=== PATIENT | female | born 1940 | race Caucasian/White ===

== ENCOUNTER → 2017-07-12 | Outpatient (CLI) | payer MEDICARE, OTHER, SELFPAY | PROVIDERS: Visit Provider Nurse Practitioner Family | DX: I10 Essential (primary) hypertension (principal); E03.9 Hypothyroidism, unspecified | CPT/HCPCS: 80053; 80061; 84439; 84443; 85025 ==

== ENCOUNTER → 2017-07-19 | Outpatient (CLI) | payer MEDICARE, OTHER, SELFPAY | PROVIDERS: Visit Provider Physician Assistant | DX: I10 Essential (primary) hypertension (principal) | CPT/HCPCS: 80053; 80061; 85025 ==

== ENCOUNTER → 2018-01-10 09:21 | Outpatient (CLI) | payer MEDICARE, OTHER, SELFPAY | PROVIDERS: Visit Provider Nurse Practitioner Family | DX: Z09 Encounter for follow-up examination after completed treatment for conditions other than malignant neoplasm (principal) ==

== ENCOUNTER → 2018-02-22 10:41 | Outpatient (CLI) | payer MEDICARE, OTHER, SELFPAY ==
--- NOTE | 2018-02-22 10:48 | CA_ITS ---
PROCEDURE: 2-D M-mode and color Doppler study INDICATIONS FOR THE TEST: Chest pain COPD Heart MurmurX Tobacco Smoking Palpitations Fatigue Syncope Edema HypertensionXDiabetes Mellitus Rheumatic Fever SOB SAEZ Obesity Hyperlipidemia Family History HD Additional History 1ST DEGREE BLOCK PATIENT INFORMATION HEIGHT: 66 WEIGHT:157 GENDER: Female B/P:133/61 2-D/M-MODE INTERPRETATION: 2-D MEASUREMENTS OBSERVED VALUES IN CMS Right Ventricular Dimension (RVDd) 1.5 Interventricular Septum (Thickness)(IVsd) .8 Left Ventricular Internal Dimensions(LVIDd) 5.6 Left Ventricular Posterior Wall (Thickness)(LVPWd) 1.0 Aortic Root 3.3 Aortic Cusp Separation 1.8 Left Atrial Dimensions (LAD) 3.3 2D 1. Left atrium is mildly enlarged, left ventricle is normal size, visually estimated ejection fraction 55% with no obvious regional wall motion abnormality. 2. The right atrium and right ventricle are normal size and contractility. 3. The aortic valve is minimally thickened and fibrosed. 4. The mitral and tricuspid valve leaflets are minimally thickened. 5. The pulmonic valve is poorly visualized. 6. No significant pericardial effusion noted. DOPPLER INTERROGATION: Doppler interrogation of the aortic, mitral and tricuspid valvular presence of mild mitral and tricuspid regurgitation, tricuspid and jet velocity is insufficient for calculation of the right ventricular systolic pressure, mild aortic insufficiency also seen. Diastolic parameters are inconclusive. CONCLUSION: 1. Mildly enlarged left atrium, normal left ventricular size, visually estimated ejection fraction 55% with no obvious regional wall motion abnormality, diastolic parameters are inconclusive. 2. Mild aortic, mild mitral and tricuspid regurgitation 3. No significant pericardial effusion noted.
== END ==
PROVIDERS: PCP Emergency Medicine; Visit Provider Internal Medicine
DX: I44.39 Other atrioventricular block (principal)
CPT/HCPCS: 93306

== ENCOUNTER → 2018-03-19 10:37 | Outpatient (CLI) | payer MEDICARE, OTHER, SELFPAY ==
--- NOTE | 2018-03-19 10:39 | XR_ITS ---
XR cervical spine w flex/ext CLINICAL INDICATION: Neck pain with kyphosis ITS.REASON: neck pain ORDERING PHYSICIAN: YANDY Razo PATIENT AGE: 78 years Comparison: None FINDINGS: There is kyphosis of the upper thoracic spine. There is mild degenerative disc disease at C5-C6 and C6-C7. There is normal alignment. No fracture or dislocation is evident. The neural foramina are widely patent. Flexion and extension views show no abnormal subluxation in flexion or extension. There is some intimal fixed subluxation of C7 on T1 anteriorly of approximately 1-2 mm likely degenerative in nature. No lytic or blastic change. No evidence of cervical rib. IMPRESSION: Mild degenerative disc disease of the cervical spine with thoracic kyphosis with no abnormal subluxation in flexion or extension
== END ==
PROVIDERS: PCP Nurse Practitioner Family; Visit Provider Physician Assistant
DX: M54.2 Cervicalgia (principal)
CPT/HCPCS: 72052

== ENCOUNTER → 2018-04-05 09:31 | Outpatient (CLI) | payer MEDICARE, OTHER, SELFPAY ==
[2018-04-05 16:11] LABS: Basophils % 0.5 % (0.1-2.0); Eosinophils # 0.2 K/mm3 (0.0-0.4); Eosinophils % 1.6 % (0.1-12.0); Hematocrit 39.5 % (37.0-47.0); Hemoglobin 13.2 g/dL (12.2-16.2); Lymphocytes % 21.5 K/mm3 (10-50); Mean Corpuscular HGB Conc 33.3 g/dL (31.8-35.4); Mean Corpuscular Hemoglobin 29.3 pg (27.0-31.2); Mean Corpuscular Volume 87.8 fl (81-99); Mean Platelet Volume 8.7 fl (7.4-10.4); Monocytes # 0.6 K/mm3 (0.1-1.0); Monocytes % 6.2 % (1.7-9.3); Neutrophils # 6.4 K/mm3 (1.8-7.8); Neutrophils % 70.2 % (37.0-80.0); Platelet Count 297 K/mm3 (142-424); Red Cell Distribution Width 13.3 % (11.5-17.5); White Blood Count 9.1 K/mm3 (4.8-10.8)
[2018-04-05 16:58] LABS: Alanine Aminotransferase 26 U/L (12-78); Albumin Level 3.6 gm/dL (3.4-5.0); Alkaline Phosphatase 111 U/L (46-116); Anion Gap 13.4 mEq/L (5-15); Aspartate Amino Transferase 18 U/L (15-37); Bilirubin,Total 0.6 mg/dL (0.2-1.0); Blood Urea Nitrogen 15 mg/dL (7-18); Calcium 9.7 mg/dL (8.5-10.1); Carbon Dioxide 29 mmol/L (21.0-32.0); Chloride 98 mmol/L (98-107); Chol/HDL Ratio 2.8 (1-3.5); Cholesterol 179 mg/dL (140-200); Creatinine,Serum 0.68 mg/dL (0.55-1.02); Estimated Glomerular Filt Rate 83 ml/min (>60); GFR (African American) 101 ML/MIN (>60); Globulin 3.7 gm/dl (1.3-3.2); Glucose 93 mg/dL (74-106); HDL Cholesterol 63 mg/dL (29-89); LDL Cholesterol 92 mg/dL (0-130); Potassium 3.4 mmoL/L (3.5-5.1); Sodium 137 mmol/L (136-145); T4 (Thyroxine) 10.8 ug/dl (4.7-13.3); Thyroid Stimulating Hormone 3.89 uIU/ml (0.358-3.740); Total Protein,Serum 7.3 gm/dL (6.4-8.2); Triglycerides 122 mg/dL (30-200); VLDL Cholesterol 24 mg/dL (0-40)
== END ==
PROVIDERS: Visit Provider Nurse Practitioner Family
DX: R53.83 Other fatigue (principal); E03.9 Hypothyroidism, unspecified; I49.9 Cardiac arrhythmia, unspecified
CPT/HCPCS: 80053; 80061; 84436; 84443; 85025

== ENCOUNTER → 2018-07-11 14:01 | Outpatient (CLI) | payer MEDICARE, OTHER, SELFPAY | PROVIDERS: Visit Provider Nurse Practitioner Family | DX: R35.0 Frequency of micturition (principal) | CPT/HCPCS: 87086 ==

== ENCOUNTER → 2020-03-24 08:17 | Outpatient (CLI) | payer MEDICARE, OTHER, SELFPAY ==
--- NOTE | 2020-03-24 08:17 | CA_ITS ---
APPROVED REPORT EXAM: Comprehensive 2D, Doppler, and color-flow Echocardiogram Early Childhood Special Educator: Mara Morgan RT(R) Ht: 5 ft 1 in Wt: 149lbs BSA: 1.67 BP: 129/57 mmHg Indications: murmur, SOA, Mr, HTN, SAEZ, abn EKG 2D Dimensions LVOT 1.86 cm (M/F) 1.5-2.5 M-Mode Dimensions RVDd 1.93 cm (0.9-2.6) LVDd 4.65 cm (3.5-5.7) LVDs 2.83 cm (3.5-5.7) IVSd 1.00 cm (0.6-1.1) PWd 0.89 cm (0.6-1.1) EF (Teich) 69.60% FS 39.10% EDV (Teich) 99.80 mL ESV (Teich) 30.30 mL LV Diastology E/A Ratio 0.94 Mitral Valve MV A Velocity 98.00 (40-130 cm/s) Left Ventricle Left atrium is mildly enlarged, left ventricle is normal size, mild concentric left ventricular hypertrophy, visually estimated ejection fraction 55% with no regional wall motion abnormality, grade 1 diastolic dysfunction seen without tissue Doppler evidence of raise left atrial pressure. Right Ventricle Right atrium and right ventricle are normal size and contractility. Aortic Valve Aortic valve is minimally thickened and fibrosed, there is no aortic stenosis, there is mild aortic insufficiency. Mitral Valve Mitral valve leaflets are minimally thickened, there is no mitral stenosis, there is mild mitral regurgitation. Tricuspid Valve Tricuspid valve is grossly normal, there is mild tricuspid regurgitation, tricuspid regurgitation jet velocity is inadequate for calculation of the right ventricular systolic pressure. Pulmonic Valve Pulmonic valve is poorly visualized. Great Vessels Aortic root is normal size. Pericardium No significant pericardial effusion noted. Conclusion 1. Mildly enlarged left atrium, normal left ventricular size, mild concentric left ventricular hypertrophy, visually estimated ejection fraction 55% with no regional wall motion abnormality, grade 1 diastolic dysfunction seen without tissue Doppler evidence of raise left atrial pressure. 2. Mild aortic, mild mitral and tricuspid regurgitation. 3. No significant pericardial effusion noted. Electronically signed by : Wilner Clark, 03/25/2020 10:47:19
== END ==
PROVIDERS: PCP Nurse Practitioner Family; Visit Provider Nurse Practitioner Family
DX: E03.8 Other specified hypothyroidism (principal); F41.9 Anxiety disorder, unspecified; I34.0 Nonrheumatic mitral (valve) insufficiency; I44.0 Atrioventricular block, first degree; R01.1 Cardiac murmur, unspecified; R06.09 Other forms of dyspnea; R94.31 Abnormal electrocardiogram [ECG] [EKG]
CPT/HCPCS: 93306

== ENCOUNTER 2021-05-23 10:21 | Emergency (ER) | payer MEDICARE, OTHER, SELFPAY ==
[2021-05-23 10:45] VITALS: BMI 28.3
--- NOTE | 2021-05-23 10:47 | XR_ITS ---
PROCEDURE: XR HAND RT 2V CLINICAL INDICATION: FALL COMPARISON: CR XR HAND RT MIN 3V from 10/15/2019 FINDINGS: No fracture or dislocation. No lytic or blastic change. There is normal mineralization. Osteoarthritic changes are present involving the DIP of digits 2 through and at the 1st interphalangeal joint as well as the PIP joints of digits 2 through 5 and the 1st metacarpophalangeal joint Other findings:There is some periosteal thickening at the midshaft of the 1st metacarpal suggesting a healing fracture. Previously described cortical lucencies of the 5th metacarpal are less apparent IMPRESSION: Osteoarthritic change, no acute finding. Possible old 1st metacarpal fracture not significantly changed Dictated by: Berhane Medina MD 05/23/2021 13:25 Berhane Medina MD in [place] 05/23/2021 13:25
--- NOTE | 2021-05-23 10:47 | XR_ITS ---
PROCEDURE: XR ELBOW RT 2V CLINICAL INDICATION: FALL COMPARISON: No exams were available for comparison FINDINGS: No fracture or dislocation. No lytic or blastic change. There is normal mineralization. The joint spaces are well-preserved. No significant degenerative/arthritic changes. No erosive changes evident. Other findings:None. IMPRESSION: No acute findings. Dictated by: Berhane Medina MD 05/23/2021 13:26 Berhane Medina MD in [place] 05/23/2021 13:26
--- NOTE | 2021-05-23 10:47 | XR_ITS ---
PROCEDURE: XR WRIST RT 2V CLINICAL INDICATION: FALL COMPARISON: CR XR HAND RT 2V from 05/23/2021 FINDINGS: No fracture or dislocation. No lytic or blastic change. There is normal mineralization. Osteoarthritic change the scapho trapezium joint. Other findings:None. IMPRESSION: No acute findings. Dictated by: Berhane Medina MD 05/23/2021 13:25 Berhane Medina MD in [place] 05/23/2021 13:25
--- NOTE | 2021-05-23 10:47 | XR_ITS ---
PROCEDURE: XR FOREARM RT 2V CLINICAL INDICATION: FALL COMPARISON: No exams were available for comparison FINDINGS: No fracture or dislocation. No lytic or blastic change. There is normal mineralization. The joint spaces are well-preserved. No significant degenerative/arthritic changes. No erosive changes evident. Other findings:None. IMPRESSION: No acute findings. Dictated by: Berhane Medina MD 05/23/2021 13:20 Berhane Medina MD in [place] 05/23/2021 13:20
--- NOTE | 2021-05-23 10:47 | XR_ITS ---
PROCEDURE: XR RIBS RT MIN 3V W CXR1V CLINICAL INDICATION: FALL Right-sided rib pain COMPARISON: CR XR CHEST AP from 10/15/2019 FINDINGS: There is an old fracture involving the right 5th rib. There is some minimal contour deformity involving the right 7th rib laterally which could be due to either an old or a nondisplaced acute fracture. No evidence of pneumothorax. No displaced rib fractures identified. Frontal view of the chest shows no acute finding. IMPRESSION: Old right 5th rib fracture with nondisplaced right 7th rib fracture which could be old or a nondisplaced acute fracture. Dictated by: Berhane Medina MD 05/23/2021 13:19 Berhane Medina MD in [place] 05/23/2021 13:19
[2021-05-23 10:50] VITALS: BP 164/98; PULSE 75; RESP 20; TEMP 36.6; O2SAT 96; BMI 25.0
--- NOTE | 2021-05-23 13:23 | HMH.EDUTC ---
[facility] [place] Clinical Impression: Fall Qualifiers: Encounter type: initial encounter Qualified Code(s): W19.XXXA - Unspecified fall, initial encounter Rib fracture Qualifiers: Encounter type: initial encounter Rib fracture type: single rib Fracture type: closed Laterality: right Qualified Code(s): S22.31XA - Fracture of one rib, right side, initial encounter for closed fracture Contusion of right wrist Qualifiers: Encounter type: initial encounter Qualified Code(s): S60.211A - Contusion of right wrist, initial encounter Contusion of right elbow Qualifiers: Encounter type: initial encounter Qualified Code(s): S50.01XA - Contusion of right elbow, initial encounter Abrasion of right arm Qualifiers: Encounter type: initial encounter Qualified Code(s): S40.811A - Abrasion of right upper arm, initial encounter Disposition: Home, Self-Care Condition on Discharge: Good Instructions: How to Use an Incentive Spirometer, DI for Rib Fracture, DI for Contusion Additional Instructions: Rest the extremity, apply ice for 15 minutes as tolerated three or four times per day, Wear the monika wrap for compression, Elevate the extremity as tolerated while you are resting. Take tylenol for pain. Follow up with Dr. Jackson (orthopedics) regarding your right wrist and arm pain. Sometimes there can be fractures that don't show up well on the first set of x-rays. So, you should follow up if you continue to have symptoms. I put in a referral but you need to call his office and schedule an appointment. Use the incentive spirometer 10 times every 2 hours while you are awake for the next 2 weeks or so. Follow up with your regular doctor. GO TO THE ER FOR ANY WORSENING SYMPTOMS Apply the mupirocin (bactroban) ointment to the abrasion on your arms. Prescriptions: Mupirocin [Bactroban 2% Ointment 22gm tube] 1 applicatio TP TID 7 Days #1 gm Transmission Status: Received by [facility] Referrals: Humberto Silva APRN [Primary Care Provider] - Artur Jackson MD [Staff Physician] - Time of Disposition: 13:28 Medical Decision Making - Medical Records Medical records reviewed: No: I reviewed the patient's medical records. - James Inquiry Pt receiving controlled substance: No Vital Signs: 05/23/21 10:50 05/23/21 13:31 Temperature 97.9 F 97.9 F Temperature Source Oral Pulse Rate 75 Pulse Rate [Left Brachial] 75 Respiratory Rate 20 20 Blood Pressure 164/98 H Blood Pressure [Left Arm] 164/98 H Blood Pressure Mean [Left Arm] 120 Blood Pressure Source [Left Arm] Automatic Cuff Blood Pressure Position [Left Arm] Sitting 02 Sat by Pulse Oximetry 96 Oxygen Delivery Method Room Air - Radiology Data #1 Image(s): Chest Image Reviewed: Yes I reviewed the patient's radiology image, Yes I have reviewed radiologist's interpretation Preliminary Findings: Abnormal PROCEDURE: XR RIBS RT MIN 3V W CXR1V CLINICAL INDICATION: FALL Right-sided rib pain COMPARISON: CR XR CHEST AP from 10/15/2019 FINDINGS: There is an old fracture involving the right 5th rib. There is some minimal contour deformity involving the right 7th rib laterally which could be due to either an old or a nondisplaced acute fracture. No evidence of pneumothorax. No displaced rib fractures identified. Frontal view of the chest shows no acute finding. IMPRESSION: Old right 5th rib fracture with nondisplaced right 7th rib fracture which could be old or a nondisplaced acute fracture. Dictated by: Berhane Medina MD 05/23/2021 13:19 Berhane Medina MD in [place] 05/23/2021 13:19 #2 Image(s): Wrist Image Reviewed: Yes I reviewed the patient's radiology image, Yes I have reviewed radiologist's interpretation Preliminary Findings: No Fracture Seen #3 Image(s): Forearm Image Reviewed: Yes I reviewed the patient's radiology image, Yes I have reviewed radiologist's interpretation Preliminary Findin
[2021-05-23 13:31] VITALS: BP 164/98; PULSE 75; RESP 20; TEMP 36.6; O2SAT 96
--- NOTE | 2021-05-23 13:33 | PC.NURSE ---
PATIENT GIVEN INCENTIVE SPIROMETER AND INSTRUCTED ON USE
== END 2021-05-23 13:42 | disposition home or self-care (01) ==
PROVIDERS: Emergency Provider Nurse Practitioner Family; PCP Nurse Practitioner Family
DX: S22.31XA Fracture of one rib, right side, initial encounter for closed fracture (principal); S60.211A Contusion of right wrist, initial encounter; S50.01XA Contusion of right elbow, initial encounter; S40.811A Abrasion of right upper arm, initial encounter; W01.0XXA Fall on same level from slipping, tripping and stumbling without subsequent striking against object, initial encounter; I10 Essential (primary) hypertension; R00.2 Palpitations
CPT/HCPCS: G0463; 71101; 73070; 73090; 73100; 73120; 99202

== ENCOUNTER 2022-06-06 13:51 | Inpatient (IN) | payer OTHER, SELFPAY ==
[2022-06-06] VITALS (11 sets, daily range): BP systolic 118–151; BP diastolic 66–76; PULSE 48–89; RESP 16–50; TEMP 36.8–37.1; O2SAT 92–100; BMI 27.4; BMI 21.8
--- NOTE | 2022-06-06 14:10 | ECG_ITS ---
APPROVED REPORT Exam: Resting ECG HR:77 bpm ECG Measurements Heart Rate 77 AXES NE 241 P 67 QRSd 103 QRS -21 QT 408 T 18 QTc 439 Conclusion SINUS RHYTHM WITH FIRST DEGREE AV BLOCK BORDERLINE LEFT AXIS DEVIATION [QRS AXIS < -20] ST DEVIATION AND MODERATE T-WAVE ABNORMALITY, CONSIDER ANTEROLATERAL ISCHEMIA [-0.1+ mV T-WAVE IN V3-V6] ST DEVIATION AND MODERATE T-WAVE ABNORMALITY, CONSIDER INFERIOR ISCHEMIA [-0.1+ mV T-WAVE IN II/aVF] ABNORMAL ECG UNCONFIRMED REPORT Electronically signed by : Nik Hurst MD 06/06/2022 19:42:09
--- NOTE | 2022-06-06 14:12 | XR_ITS ---
FINAL REPORT CLINICAL HISTORY: fall COMPARISON: May 23, 2021 FINDINGS: The heart size is normal. The mediastinum is within normal limits. There is no acute cardiopulmonary process. There is no pleural effusion. There is no pneumothorax. There appears to be mildly comminuted proximal left humerus fracture. IMPRESSION: No acute cardiopulmonary process. Mildly comminuted proximal left humerus fracture. Reviewed, Interpreted and Dictated by Ashwin Sepulveda MD Transcribed by Albino Lau Authenticated and [facility]
--- NOTE | 2022-06-06 14:12 | XR_ITS ---
FINAL REPORT CLINICAL HISTORY: fall FINDINGS: Left shoulder A single view was obtained. There is an acute mildly impacted fracture of the proximal left humerus. The visualized joint spaces are preserved. There is no acute soft tissue abnormality. IMPRESSION: Mildly impacted fracture of the proximal left humerus. Reviewed, Interpreted and Dictated by Ashwin Sepulveda MD Transcribed by Albino Lau Authenticated and [facility]
--- NOTE | 2022-06-06 14:12 | XR_ITS ---
FINAL REPORT CLINICAL HISTORY: fall FINDINGS: AP PELVIS: A single view of the pelvis was obtained. There is no acute fracture or dislocation. There is moderate hip joint space narrowing. Soft tissues are unremarkable. IMPRESSION: No acute process. Reviewed, Interpreted and Dictated by Ashwin Sepulveda MD Transcribed by Albino Lau Authenticated and [facility]
--- NOTE | 2022-06-06 14:17 | HMH.EDGENADL ---
Discharge Plan Disposition Patient Disposition: Admitted As Inpatient Condition: Fair Prescriptions Prescriptions: No Action losartan-hydrochlorothiazide 50-12.5 mg tablet See Rx Instructions .ROUTE .COMPLEX Qty: 30 3RF Dose Instruction: TAKE ONE TABLET BY MOUTH EVERY DAY Rx Instructions: TAKE ONE TABLET BY MOUTH EVERY DAY levothyroxine 50 mcg tablet See Rx Instructions .ROUTE .COMPLEX Qty: 90 4RF Dose Instruction: TAKE ONE TABLET BY MOUTH EVERY DAY Rx Instructions: TAKE ONE TABLET BY MOUTH EVERY DAY mupirocin 22 GM ointment 1 applicatio TP TID 7 Days Qty: 1 0RF Referrals Follow up/Referrals: Provider,Referral, [Primary Care Provider] - See instructions Clinical Impressions Clinical Impression: Closed fracture of neck of left humerus, Fall, Rhabdomyolysis Discharge ED Provider: Yayo Hernandez General Adult HPI General Chief complaint: Fall Stated complaint: fall Time Seen by Provider: 06/06/22 14:06 Mode of Arrival: EMS Source of Information: Patient Limitations: No Limitations Description of Symptoms (Recalled from ER Triage Doc. by RN): c/o left shoulder pain and right side pain after falling. Per EMS pt was found on the floor, pt is unsure of time of fall yesterday but she remembers that she ate breakfast and lunch yesterday but did not eat supper. Pt has some confusion but family states to EMS that has been something that has been developing over the past few months. History of Present Illness HPI narrative: Patient presents status post fall complaining of left shoulder discomfort. History is limited due to patient being poor historian and oriented only to person place and time. She describes her shoulder pain is mild to moderate and worse with movement. She is uncertain as to why she fell. She denies additional injuries. Related Data Previous Rx's Medication Instructions Recorded mupirocin 2 % topical ointment 1 applicatio TP TID 7 days ##1 05/23/21 losartan 50 mg-hydrochlorothiazide See Rx Instructions .Route 10/25/21 12.5 mg tablet .COMPLEX #30 tabs levothyroxine 50 mcg tablet See Rx Instructions .Route 10/31/21 .COMPLEX #90 tabs Allergies Allergy/AdvReac Type Severity Reaction Status Date / Time No Known Allergies Allergy Verified 02/23/21 11:08 [facility] Medical History (Updated 06/06/22 @ 15:55 by Yayo Hernandez MD) Anxiety Cardiac murmur Dyspnea Hypothyroid Irregular heart rhythm Mitral valve regurgitation Social History Smoking Status: Never smoker alcohol intake: never substance use type: denies use current occupational status: other Travel in the last 8 weeks: None housing: house ROS Obtained: Yes All systems reviewed & no additional complaints except as documented Constitutional Constitutional: Reports system reviewed and no additional complaints, except as documented Eyes Eyes: Reports system reviewed and no additional complaints, except as documented ENT Ears, Nose, Mouth, and Throat: Reports system reviewed and no additional complaints, except as documented Cardiovascular Cardiovascular: Reports system reviewed and no additional complaints, except as documented Respiratory Respiratory: Reports system reviewed and no additional complaints, except as documented Gastrointestinal Gastrointestingal: Reports system reviewed and no additional complaints, except as documented Genitourinary Female Genitourinary: Reports system reviewed and no additional complaints, except as documented Musculoskeletal Musculoskeletal: Reports system reviewed and no additional complaints, except as documented Integumentary/Breasts Skin/Breast: Reports system reviewed and no additional complaints, except as documented Neurologic Neurologic: Reports system reviewed and no additional complaints, except as documented Endocrine Endocrine: Reports system reviewed and no additional complaints, except as documented Hematologic/Lymphatic Hen
[2022-06-06 14:26] LABS: Basophils # 0.1 K/mm3 (0-0.2); Basophils % 0.4 % (0.1-2.0); Eosinophils % 0.1 % (0.1-12.0); Hematocrit 45.6 % (37.0-47.0); Hemoglobin 15.6 g/dL (12.2-16.2); Lymphocytes # 1.5 K/mm3 (0.7-4.5); Lymphocytes % 10.2 % (10-50); MANUAL DIFFERENTIAL MANUAL DIFFERENTIAL (MANUAL DIFF); Mean Corpuscular HGB Conc 34.2 g/dL (31.8-35.4); Mean Corpuscular Hemoglobin 28.5 pg (27.0-31.2); Mean Corpuscular Volume 83.2 fl (81-99); Mean Platelet Volume 9.4 fl (7.4-10.4); Monocytes # 0.5 K/mm3 (0.1-1.0); Monocytes % 3.8 % (1.7-9.3); Neutrophils # 12.4 K/mm3 (1.8-7.8); Neutrophils % 85.5 % (37.0-80.0); Platelet Count 290 K/mm3 (142-424); Red Blood Count 5.47 M/mm3 (4.20-5.40); Red Cell Distribution Width 13.5 % (11.5-17.5); White Blood Count 14.5 K/mm3 (4.8-10.8)
[2022-06-06 14:29] LABS: Chloride 96 mmol/L (98-107)
[2022-06-06 14:30] LABS: Potassium 3.3 mmoL/L (3.5-5.1); Sodium 138 mmol/L (136-145)
[2022-06-06 14:32] LABS: Alanine Aminotransferase 17 U/L (12-78); Alkaline Phosphatase 150 U/L (38-126); Aspartate Amino Transferase 41 U/L (14-36); Blood Urea Nitrogen 29 mg/dl (7-17); Creatine Kinase 698 U/L (30-135); Creatinine Clearance Estimated 48 mL/min (50-200); Estimated Glomerular Filt Rate 80 ml/min (>60); GFR (African American) 96 ML/MIN (>60)
[2022-06-06 14:33] LABS: Albumin Level 4.1 g/dl (3.5-5.0); Albumin/Globulin Ratio 1.1 (1.1-1.8); Anion Gap 15.3 mEq/L (5-15); Calcium 9.8 mg/dl (8.4-10.2); Carbon Dioxide 30 mmol/L (22.0-30.0); Globulin 3.8 g/dL (1.3-3.2); Glucose 125 mg/dl (74-100); Total Protein,Serum 7.9 g/dl (6.3-8.2)
[2022-06-06 14:45] LABS: Lymphocytes % 16 % (10-50); Monocytes % 3 % (2-9); Neutrophils % 81 % (42-76); Platelet Estimate Normal; RBC Morphology Normal; Total Cells Counted 100
[2022-06-06 14:52] LABS: Troponin I < 0.01 ng/ml (0.00-0.034)
[2022-06-06 15:01] LABS: Microscopic, Urine URINE MICROSCOPIC (MICROSCOPIC)
[2022-06-06 15:14] LABS: Appearance,Urine CLEAR (Clear); Blood, Urine TRACE-I (Negative); Color,Urine YELLOW (Yellow); Glucose,Urine (UA) Negative (Negative); Ketones,Urine Negative (Negative); Leukocyte Esterase,Urine Negative (Negative); Nitrate,Urine Negative (Negative); Protein,Urine Negative (Negative); Specific Gravity, Urine >= 1.030 (1.005-1.030); Urobilinogen,Urine 0.2 EU/dl (0.2)
[2022-06-06 15:30] LABS: Bilirubin,Urine 1+ (Negative)
[2022-06-06 15:39] LABS: Coronavirus 19, PCR Not Detected (NotDetected); Influenza A, PCR Not Detected (NotDetected); Influenza B, PCR Not Detected (NotDetected)
[2022-06-06 15:44] LABS: RBC,Urine Occasional #/hpf (0-3); WBC,Urine Occasional #/hpf (0-3)
--- NOTE | 2022-06-06 17:14 | PC.NURSE ---
HOUSE CALLED FOR BED
--- NOTE | 2022-06-06 18:01 | EXP.HP ---
History of Present Illness *Admission Date: 06/06/22 *Reason for visit:: Fall, weakness, left arm pain *History of present illness: This case Gayden is an 82-year-old female who lives by herself. Presented to the ER today via EMS after being found on the floor in her apartment. She is unsure of when she fell, states it may have been this weekend or could have been today. She has a poor recollection of time. On arrival to the ER complaining of left arm pain. Her brother is with her at bedside, he was unaware that she was brought to the hospital. Her stepson is who notified EMS and had her brought to the hospital. She denies any chest pain, nausea or vomiting, shortness of breath, abdominal pain. Does have some weakness and pain in her legs. Also noted to have tremor which is baseline for her. She usually gets around with a Rollator, feeds herself, prepares her own food. Has never been to a detention. Labs on arrival to the ER showed concern for rhabdomyolysis. Imaging showed comminuted left proximal humeral fracture. Medicine consulted for admission and management of her conditions. On evaluation, she complains of mild to moderate left arm pain. Denies hitting her head. Reports she has no clear idea of when she fell. Has had difficulty using her walker since her fall. Of note her close had to be cut off, was found with stool on herself. [facility] Medical History Anxiety Cardiac murmur Dyspnea Hypothyroid Irregular heart rhythm Mitral valve regurgitation Social History Smoking Status: Never smoker alcohol intake: never substance use type: denies use current occupational status: other Travel in the last 8 weeks: None housing: house Review of Systems Review of Systems Review of systems (narrative): 14 point review of systems performed, pertinent positives and negatives as per HPI *Neurologic Neurologic: Reports system reviewed and no additional complaints, except as documented Meds Home Medications and Allergies Home Medications Medication Instructions Recorded Confirmed Type mupirocin 2 % topical ointment 1 applicatio TP TID 7 days ##1 05/23/21 Rx losartan 50 mg-hydrochlorothiazide See Rx Instructions .Route 10/25/21 Rx 12.5 mg tablet .COMPLEX #30 tabs levothyroxine 50 mcg tablet See Rx Instructions .Route 10/31/21 Rx .COMPLEX #90 tabs New Prescriptions to Start Prescriptions: Allergies Allergy/AdvReac Type Severity Reaction Status Date / Time No Known Allergies Allergy Verified 02/23/21 11:08 Exam Data for Last 24 hours Vital signs and Labs for Last 24 Hours: Temp Pulse Resp BP Pulse Ox 98.2 F 86 18 129/66 100 06/06/22 13:51 06/06/22 17:30 06/06/22 17:30 06/06/22 17:30 06/06/22 17:30 Laboratory Results - last 24 hr 06/06/22 14:00: WBC 14.5 H, RBC 5.47 H, Hgb 15.6, Hct 45.6, MCV 83.2, MCH 28.5, MCHC 34.2, RDW 13.5, Plt Count 290, MPV 9.4, Neut % (Auto) 85.5 H, Lymph % (Auto) 10.2, Gooding % (Auto) 3.8, Eos % (Auto) 0.1, Baso % (Auto) 0.4, Neut # (Auto) 12.4 H, Lymph # (Auto) 1.5, Gooding # (Auto) 0.5, Eos # (Auto) 0.0, Baso # (Auto) 0.1, Total Counted 100, Neutrophils % (Manual) 81 H, Lymphocytes % (Manual) 16, Monocytes % (Manual) 3, Platelet Estimate Normal, RBC Morphology Normal 06/06/22 14:00: Sodium 138, Potassium 3.3 L, Chloride 96 L, Carbon Dioxide 30, Anion Gap 15.3 H, BUN 29 H, Creatinine 0.70, Estimated Creat Clear 48, Estimated GFR 80, Est GFR ( Amer) 96, Glucose 125 H, Calcium 9.8, Total Bilirubin 1.0, AST 41 H, ALT 17, Alkaline Phosphatase 150 H, Total Creatine Kinase 698 H*, Troponin I < 0.01, Total Protein 7.9, Albumin 4.1, Globulin 3.8 H, Albumin/Globulin Ratio 1.1 06/06/22 14:40: Urine Color Yellow, Urine Appearance Clear, Urine pH 6.0, Ur Specific Buhler >= 1.030, Urine Protein Negative, Urine Glucose (UA) Negative, Urine Ketones Nega
--- NOTE | 2022-06-06 18:07 | PC.NURSE ---
report called to Sabina MONET
--- NOTE | 2022-06-06 18:22 | PC.NURSE ---
Pt arrived to the floor at this time
--- NOTE | 2022-06-06 18:31 | EXP.ORTH.CON ---
History of Present Illness *Admission Date: 06/06/22 *Reason for visit:: Orthopedic consultation for left proximal humerus fracture *History of present illness: 82-year-old female who suffered a fall. Presented emergency room found to have left proximal humerus fracture. Patient be admitted to the hospital and orthopedic consulted regarding treatment recommendations in regards to proximal humerus fracture on the left. [facility] Medical History Anxiety Cardiac murmur Dyspnea Hypothyroid Irregular heart rhythm Mitral valve regurgitation Social History Smoking Status: Never smoker alcohol intake: never substance use type: denies use current occupational status: other Travel in the last 8 weeks: None housing: house Review of Systems Review of Systems Review of systems:: pertinent systems reviewed and negative unless documented below *Neurologic Neurologic: Reports system reviewed and no additional complaints, except as documented Meds Home Medications and Allergies Home Medications Medication Instructions Recorded Confirmed Type mupirocin 2 % topical ointment 1 applicatio TP TID 7 days ##1 05/23/21 Rx losartan 50 mg-hydrochlorothiazide See Rx Instructions .Route 10/25/21 Rx 12.5 mg tablet .COMPLEX #30 tabs levothyroxine 50 mcg tablet See Rx Instructions .Route 10/31/21 Rx .COMPLEX #90 tabs New Prescriptions to Start Prescriptions: Allergies Allergy/AdvReac Type Severity Reaction Status Date / Time No Known Allergies Allergy Verified 02/23/21 11:08 Ortho Exam (Inpt) Vital signs and Labs for Last 24 Hours: Temp Pulse Resp BP Pulse Ox 98.2 F 86 18 129/66 100 06/06/22 13:51 06/06/22 17:30 06/06/22 17:30 06/06/22 17:30 06/06/22 17:30 Laboratory Results - last 24 hr 06/06/22 14:00: WBC 14.5 H, RBC 5.47 H, Hgb 15.6, Hct 45.6, MCV 83.2, MCH 28.5, MCHC 34.2, RDW 13.5, Plt Count 290, MPV 9.4, Neut % (Auto) 85.5 H, Lymph % (Auto) 10.2, [place] % (Auto) 3.8, Eos % (Auto) 0.1, Baso % (Auto) 0.4, Neut # (Auto) 12.4 H, Lymph # (Auto) 1.5, [place] # (Auto) 0.5, Eos # (Auto) 0.0, Baso # (Auto) 0.1, Total Counted 100, Neutrophils % (Manual) 81 H, Lymphocytes % (Manual) 16, Monocytes % (Manual) 3, Platelet Estimate Normal, RBC Morphology Normal 06/06/22 14:00: Sodium 138, Potassium 3.3 L, Chloride 96 L, Carbon Dioxide 30, Anion Gap 15.3 H, BUN 29 H, Creatinine 0.70, Estimated Creat Clear 48, Estimated GFR 80, Est GFR ( Amer) 96, Glucose 125 H, Calcium 9.8, Total Bilirubin 1.0, AST 41 H, ALT 17, Alkaline Phosphatase 150 H, Total Creatine Kinase 698 H*, Troponin I < 0.01, Total Protein 7.9, Albumin 4.1, Globulin 3.8 H, Albumin/Globulin Ratio 1.1 06/06/22 14:40: Urine Color Yellow, Urine Appearance Clear, Urine pH 6.0, Ur Specific [place] >= 1.030, Urine Protein Negative, Urine Glucose (UA) Negative, Urine Ketones Negative, Urine Blood Trace-i, Urine Nitrate Negative, Urine Bilirubin 1+ A, Urine Urobilinogen 0.2, Ur Leukocyte Esterase Negative, Urine RBC Occasional, Urine WBC Occasional, Ur Squamous Epith Cells 3-5, Urine Bacteria None 06/06/22 14:43: SARS-CoV-2 (PCR) Not detected, Influenza A Untype (PCR) Not detected, Influenza Type B (PCR) Not detected I & O for Labs for Last 24 Hours: Intake & Output 06/03/22 06/04/22 06/05/22 06/06/22 23:59 23:59 23:59 23:59 Weight 160 lb Comment:: Left upper extremity: Left upper extremity in the sling. Mild tenderness palpation around the proximal humerus. No open wounds. Skins intact. Sensations intact. X-rays left proximal humerus reveal impacted proximal humerus fracture nondisplaced Results Labs Result Diagrams: 06/06/22 14:00 06/06/22 14:00 Labs: Abnormal lab results 06/06/22 06/06/22 06/06/22 Range/Units 14:00 14:00 14:40 WBC 14.5 H (4.8-10.8) K/mm3 RBC 5.47 H (4.20-5.40)
--- NOTE | 2022-06-06 19:34 | PC.WOUNDNOTE ---
stage 2 coccyx on admission
[2022-06-07 04:00] VITALS: BP 115/62; PULSE 83; RESP 16; TEMP 36.6; O2SAT 94
--- NOTE | 2022-06-07 05:31 | PC.NURSE ---
NO ACUTE CHANGES SINCE PREVIOUS ASSESSMENT. PT HAS RESTED INTERMITTENTLY THIS SHIFT. LUNG SOUNDS DIMINISHED. REMAINS ON ROOM AIR. REMAINS PLEASANTLY CONFUSED. VSS.
[2022-06-07 06:49] LABS: Basophils # 0.1 K/mm3 (0-0.2); Basophils % 0.5 % (0.1-2.0); Eosinophils % 0.3 % (0.1-12.0); Hematocrit 37.3 % (37.0-47.0); Lymphocytes # 1.6 K/mm3 (0.7-4.5); Lymphocytes % 12.3 % (10-50); Mean Corpuscular HGB Conc 33.5 g/dL (31.8-35.4); Mean Corpuscular Hemoglobin 28.8 pg (27.0-31.2); Monocytes # 0.6 K/mm3 (0.1-1.0); Monocytes % 4.3 % (1.7-9.3); Neutrophils # 10.9 K/mm3 (1.8-7.8); Neutrophils % 82.7 % (37.0-80.0); Platelet Count 202 K/mm3 (142-424); Red Blood Count 4.33 M/mm3 (4.20-5.40); Red Cell Distribution Width 13.9 % (11.5-17.5); White Blood Count 13.1 K/mm3 (4.8-10.8)
[2022-06-07 06:56] LABS: Hemoglobin 12.5 g/dL (12.2-16.2)
[2022-06-07 07:41] LABS: Alanine Aminotransferase 14 U/L (12-78); Albumin Level 2.8 g/dl (3.5-5.0); Alkaline Phosphatase 116 U/L (38-126); Aspartate Amino Transferase 54 U/L (14-36); Blood Urea Nitrogen 26 mg/dl (7-17); Calcium 8.5 mg/dl (8.4-10.2); Carbon Dioxide 24 mmol/L (22.0-30.0); Chloride 102 mmol/L (98-107); Creatine Kinase 1389 U/L (30-135); Creatinine Clearance Estimated 39 mL/min (50-200); Estimated Glomerular Filt Rate 95 ml/min (>60); GFR (African American) 115 ML/MIN (>60); Globulin 2.7 g/dL (1.3-3.2); Glucose 86 mg/dl (74-100); Magnesium 1.5 mg/dl (1.6-2.3); Sodium 137 mmol/L (136-145); Total Protein,Serum 5.5 g/dl (6.3-8.2)
[2022-06-07 07:47] LABS: Anion Gap 14.1 mEq/L (5-15); Potassium 3.1 mmoL/L (3.5-5.1)
[2022-06-07 08:00] VITALS: BP 109/59; PULSE 82; RESP 20; TEMP 36.6; O2SAT 93
--- NOTE | 2022-06-07 08:13 | SW/DCPLANNER ---
Addendum entered by Zulma Pacheco 06/08/22 08:16: The plan is for this patient to discharge to [facility] level of care today. COVID swab will be collected prior to discharge. Addendum entered by Zulma Pacheco 06/07/22 12:28: Patient will discharge to [facility] level of care due to not having Medicare part A. Family is aware of situation. Addendum entered by Zulma Pacheco 06/07/22 11:31: [facility] has stated that [facility] can accept this patient for tomorrow SNF level of care. Addendum entered by Zulma Pacheco 06/07/22 09:00: Patient information has been faxed to [facility]. Original Note: This patient currently resides at home alone. Patient did have a fall at home that results in a left humerus fracture. PT evaluated patient this AM and has recommended placement at time of discharge. I spoke with patient this AM and she stated that she is agreeable to SNF level of care at time of discharge. Patient is agreeable to facilities in [place]: I will follow up with [facility] and [facility] this AM. Discharge date is unknown at this time.
--- NOTE | 2022-06-07 08:17 | HMH.PTEV ---
Physical Therapy Evaluation Rehab PT IP Evaluation Start: 06/07/22 07:18 Freq: ONCE Status: Active Protocol: Document 06/07/22 08:09 DINO (Rec: 06/07/22 08:17 DINO [id number]) Subjective/History History History This case Gayden is an 82-year -old female who lives by herself. Presented to the ER today via EMS after being found on the floor in her apartment. She is unsure of when she fell, states it may have been this weekend or could have been today. She has a poor recollection of time. On arrival to the ER complaining of left arm pain. Her brother is with her at bedside, he was unaware that she was brought to the hospital. Her stepson is who notified EMS and had her brought to the hospital. She denies any chest pain, nausea or vomiting, shortness of breath, abdominal pain. Does have some weakness and pain in her legs. Also noted to have tremor which is baseline for her. She usually gets around with a Rollator, feeds herself , prepares her own food. Has never been to a care home. Labs on arrival to the ER showed concern for rhabdomyolysis. Imaging showed comminuted left proximal humeral fracture. Medicine consulted for admission and management of her conditions. ER documentation Subjective Subjective Pt alert to situation name birthday and year, still confused with other questions. - reports pain w/ mvmnt of LUE Rehab PT IP Eval Objective Appearance Patient Behavior Cooperative,Confused,Patient Baseline Patient Orientation Name,Birthday,Year,Situation Difficulty following instructions mild Ambulation Patient Able to Ambulate
[2022-06-07 08:19] VITALS: BMI 21.9
--- NOTE | 2022-06-07 08:58 | HMH.PHAINT1 ---
Pharmacy Intervention Comments: Medication reconciliation completed via external fill history and patient interview. Of note, patient explains she is running low on her supply of losartan/HCTZ at home. -Rocio Jones, PharmD Candidate 2022
--- NOTE | 2022-06-07 09:08 | HMH.OTEV ---
OT Inpatient Evaluation Rehab OT IP Evaluation Start: 06/07/22 07:18 Freq: ONCE Status: Complete Protocol: Document 06/07/22 09:00 TERESA (Rec: 06/07/22 09:08 TERESA [id number]) Rehab OT IP Assessment Subjective History This case Alecia is an 82-year -old female who lives by herself. Presented to the ER today via EMS after being found on the floor in her apartment. She is unsure of when she fell, states it may have been this weekend or could have been today. She has a poor recollection of time. On arrival to the ER complaining of left arm pain. Her brother is with her at bedside, he was unaware that she was brought to the hospital. Her stepson is who notified EMS and had her brought to the hospital. She denies any chest pain, nausea or vomiting, shortness of breath, abdominal pain. Does have some weakness and pain in her legs. Also noted to have tremor which is baseline for her. She usually gets around with a Rollator, feeds herself , prepares her own food. Has never been to a fci. Labs on arrival to the ER showed concern for rhabdomyolysis. Imaging showed comminuted left proximal humeral fracture. Medicine consulted for admission and management of her conditions. On evaluation, she complains of mild to moderate left arm pain. Denies hitting her head . Reports she has no clear idea of when she fell. Has had difficulty using her walker since her fall. Of note her close had to be cut off, was found with stool on herself. P
--- NOTE | 2022-06-07 11:02 | DIET.NUTRFU ---
Patient triggers for severe PCM, was living alone. Eating mostly eggs and sandwiches. Has to have salt on everything, based on nutritional hx risk for wt loss PCM, liberalized to regular diet to allow her salt. Added high protein oatmeal and high protein milkshakes with lunch and dinner for additional calories and protein. His step son helped with grocery shopping but otherwise she was preparing her on meals and feeding self. This morning she was unable to open her milk and jam, she needs setup assistance. She has very long nails that maybe in the way. Nursing staff aware of assistance needed. She is noted to have skin breakdown secondary to protein malnutrition. She did agree to try the milkshakes. Looking for placement upon discharge
--- NOTE | 2022-06-07 13:33 | EXP.ACUTE.PN ---
Subjective *Date: 06/07/22 *Time: 13:33 Interval history: Patient denies any chest pain or shortness of breath today. Complaining about the eggs during breakfast. Feeding herself without difficulty. Left arm in a sling. Pain stable. Denies significant pain overnight. Patient denies any nausea, vomiting. Sitting in bedside chair on exam. Medical Exam Vital signs and Labs for Last 24 Hours: Vital Signs Temp Pulse Pulse Resp BP BP Pulse Ox 06/07/22 08:00 97.8 F 82 20 109/59 L 93 L 06/07/22 04:00 98 F 83 16 115/62 94 L 06/06/22 20:00 98.7 F 80 16 151/68 H 96 06/06/22 18:39 98.2 F 89 17 118/69 96 06/06/22 18:16 48 L 20 118/69 93 L 06/06/22 18:00 50 L 16 120/67 93 L 06/06/22 18:40 98.2 F 84 20 122/70 06/06/22 17:30 86 18 129/66 100 06/06/22 17:00 18 126/66 100 06/06/22 16:31 84 20 121/72 92 L 06/06/22 16:01 52 L 17 123/72 94 L 06/06/22 15:37 80 50 H 132/68 98 06/06/22 13:51 98.2 F 85 18 131/76 100 Intake and Output 06/06/22 06/07/22 06/07/22 23:59 07:59 15:59 Output Total 500 / 500 Balance -500 / -500 Output: Output, Urine Amount 500 / 500 Other: Number of Unmeasured Voids 0 Weight 59.534 kg 59.53 kg Patient Weight 06/07/22 23:59 Weight 59.53 kg Laboratory Results - last 24 hr 06/06/22 14:00: WBC 14.5 H, RBC 5.47 H, Hgb 15.6, Hct 45.6, MCV 83.2, MCH 28.5, MCHC 34.2, RDW 13.5, Plt Count 290, MPV 9.4, Neut % (Auto) 85.5 H, Lymph % (Auto) 10.2, [place] % (Auto) 3.8, Eos % (Auto) 0.1, Baso % (Auto) 0.4, Neut # (Auto) 12.4 H, Lymph # (Auto) 1.5, [place] # (Auto) 0.5, Eos # (Auto) 0.0, Baso # (Auto) 0.1, Total Counted 100, Neutrophils % (Manual) 81 H, Lymphocytes % (Manual) 16, Monocytes % (Manual) 3, Platelet Estimate Normal, RBC Morphology Normal 06/06/22 14:00: Sodium 138, Potassium 3.3 L, Chloride 96 L, Carbon Dioxide 30, Anion Gap 15.3 H, BUN 29 H, Creatinine 0.70, Estimated Creat Clear 48, Estimated GFR 80, Est GFR ( Amer) 96, Glucose 125 H, Calcium 9.8, Total Bilirubin 1.0, AST 41 H, ALT 17, Alkaline Phosphatase 150 H, Total Creatine Kinase 698 H*, Troponin I < 0.01, Total Protein 7.9, Albumin 4.1, Globulin 3.8 H, Albumin/Globulin Ratio 1.1 06/06/22 14:40: Urine Color Yellow, Urine Appearance Clear, Urine pH 6.0, Ur Specific [place] >= 1.030, Urine Protein Negative, Urine Glucose (UA) Negative, Urine Ketones Negative, Urine Blood Trace-i, Urine Nitrate Negative, Urine Bilirubin 1+ A, Urine Urobilinogen 0.2, Ur Leukocyte Esterase Negative, Urine RBC Occasional, Urine WBC Occasional, Ur Squamous Epith Cells 3-5, Urine Bacteria None 06/06/22 14:43: SARS-CoV-2 (PCR) Not detected, Influenza A Untype (PCR) Not detected, Influenza Type B (PCR) Not detected 06/07/22 06:34: WBC 13.1 H, RBC 4.33, Hgb 12.5 D, Hct 37.3, MCV 86.0, MCH 28.8, MCHC 33.5, RDW 13.9, Plt Count 202 D, MPV 9.0, Neut % (Auto) 82.7 H, Lymph % (Auto) 12.3, [place] % (Auto) 4.3, Eos % (Auto) 0.3, Baso % (Auto) 0.5, Neut # (Auto) 10.9 H, Lymph # (Auto) 1.6, [place] # (Auto) 0.6, Eos # (Auto) 0.0, Baso # (Auto) 0.1 06/07/22 06:34: Sodium 137, Potassium 3.1 L, Chloride 102, Carbon Dioxide 24, Anion Gap 14.1, BUN 26 H, Creatinine 0.60, Estimated Creat Clear 39, Estimated GFR 95, Est GFR ( Amer) 115, Glucose 86 D, Calcium 8.5, Magnesium 1.5 L, Total Bilirubin 1.0, AST 54 H D, ALT 14, Alkaline Phosphatase 116, Total Creatine Kinase 1389 H* D, Total Protein 5.5 L D, Albumin 2.8 L D, Globulin 2.7, Albumin/Globulin Ratio 1.0 L I & O for Labs for Last 24 Hours: Intake & Output 06/04/22 06/05/22 06/06/22 06/07/22 23:59 23:59 23:59 23:59 Output Total 500 / 500 Balance -500 / -500 Weight 59.534 kg 59.53 kg Constitutional: Present no acute distress, chronically ill appearing and disheveled Head: Present atraumatic and normocephalic ENT: Present normal exam Neck: Present normal inspection Respiratory: Present normal respiratory effort; Absent
[2022-06-07 15:41] VITALS: BP 116/68; PULSE 87; RESP 18; TEMP 36.6; O2SAT 99
--- NOTE | 2022-06-07 16:41 | EXP.DC.SUM ---
General Admission date:: 06/07/22 Discharge date: 06/08/22 HPI HPI HPI: This case Alecia is an 82-year-old female who lives by herself. Presented to the ER today via EMS after being found on the floor in her apartment. She is unsure of when she fell, states it may have been this weekend or could have been today. She has a poor recollection of time. On arrival to the ER complaining of left arm pain. Her brother is with her at bedside, he was unaware that she was brought to the hospital. Her stepson is who notified EMS and had her brought to the hospital. She denies any chest pain, nausea or vomiting, shortness of breath, abdominal pain. Does have some weakness and pain in her legs. Also noted to have tremor which is baseline for her. She usually gets around with a Rollator, feeds herself, prepares her own food. Has never been to a correction. Labs on arrival to the ER showed concern for rhabdomyolysis. Imaging showed comminuted left proximal humeral fracture. Medicine consulted for admission and management of her conditions. On evaluation, she complains of mild to moderate left arm pain. Denies hitting her head. Reports she has no clear idea of when she fell. Has had difficulty using her walker since her fall. Of note her close had to be cut off, was found with stool on herself. Hospital Course Hospital Course Hospital Course: 82-year-old female who reportedly lives independently until a fall in the past day or 2.? Brought to the ER with report of arm pain.? Found to have rhabdomyolysis and left proximal humeral fracture.? Admitted for IV rehydration and orthopedics consult.? Problems addressed as follows: Rhabdomyolysis -Found to have elevated CK on admission. Initially got worse but improved with fluid resuscitation. Patient down for unknown period of time. Continue oral hydration, kidney function remained stable during hospitalization. Electrolytes with no significant elevation. Did require potassium supplementation during hospitalization. Left humeral fracture -Orthopedics consulted, Fracture is impacted in nature, nonoperative treatment recommended. Sling for comfort.? Range of motion at wrist and elbow. Outpatient follow-up. -Complicates her ability to use Rollator and bear weight. -Pain controlled with Tylenol Hypothyroid -Continued home levothyroxine Patient meets criteria for protein calorie malnutrition. Recommend dietary evaluating patient's caloric and protein needs once at correction. Would benefit from supplementation. Hypertension and first-degree AV block -Patient on blood pressure medications on admission. Has lost weight however over the past several months. Held medications during admission, no significant hypertension. Recommend continuing to hold, reevaluate at follow-up. Concerned her medications may have contributed to her fall. PT/OT eval, recommended placement.? [facility] by [facility] We will transfer today in stable condition. Exam Data for Last 24 hours Vital signs and Labs for Last 24 Hours: Temp Pulse Resp BP Pulse Ox 97.9 F 87 18 116/68 99 06/07/22 15:41 06/07/22 15:41 06/07/22 15:41 06/07/22 15:41 06/07/22 15:41 Laboratory Results - last 24 hr 06/07/22 06:34: WBC 13.1 H, RBC 4.33, Hgb 12.5 D, Hct 37.3, MCV 86.0, MCH 28.8, MCHC 33.5, RDW 13.9, Plt Count 202 D, MPV 9.0, Neut % (Auto) 82.7 H, Lymph % (Auto) 12.3, [place] % (Auto) 4.3, Eos % (Auto) 0.3, Baso % (Auto) 0.5, Neut # (Auto) 10.9 H, Lymph # (Auto) 1.6, [place] # (Auto) 0.6, Eos # (Auto) 0.0, Baso # (Auto) 0.1 06/07/22 06:34: Sodium 137, Potassium 3.1 L, Chloride 102, Carbon Dioxide 24, Anion Gap 14.1, BUN 26 H, Creatinine 0.60, Estimated Creat Clear 39, Estimated GFR 95, Est GFR ( Amer) 115, Glucose 86 D, Calcium 8.5, Magnesium 1.5 L, Total Bilirubin 1.0, AST 54 H D, ALT 14, Alkaline Phosphatase 116, Total Creatine Kinase 1389 H* D, Total Protein 5.5 L D, Albumin 2.8 L D, Globulin 2.7, Al
[2022-06-07 17:34] LABS: Chloride 99 mmol/L (98-107); Sodium 137 mmol/L (136-145)
[2022-06-07 17:37] LABS: Blood Urea Nitrogen 26 mg/dl (7-17); Creatinine Clearance Estimated 39 mL/min (50-200); Estimated Glomerular Filt Rate 80 ml/min (>60); GFR (African American) 96 ML/MIN (>60)
[2022-06-07 17:38] LABS: Calcium 8.3 mg/dl (8.4-10.2); Carbon Dioxide 30 mmol/L (22.0-30.0); Glucose 112 mg/dl (74-100)
[2022-06-07 20:00] VITALS: BP 147/62; PULSE 83; RESP 16; TEMP 36.6; O2SAT 96; O2SAT 98
[2022-06-08 04:00] VITALS: BP 130/58; PULSE 78; RESP 16; TEMP 36.6; O2SAT 96
[2022-06-08 05:00] VITALS: BMI 22.8
--- NOTE | 2022-06-08 06:55 | PC.NURSE ---
no acute changes this shift, pt has removed two IVs this shift and had to have a new one put in, remains on room air, no complaints of pain or SOA
[2022-06-08 07:25] LABS: Basophils % 0.4 % (0.1-2.0); Eosinophils # 0.2 K/mm3 (0.0-0.4); Eosinophils % 1.8 % (0.1-12.0); Hematocrit 33.2 % (37.0-47.0); Hemoglobin 11.1 g/dL (12.2-16.2); Lymphocytes # 2.1 K/mm3 (0.7-4.5); Lymphocytes % 22.4 % (10-50); Mean Corpuscular HGB Conc 33.6 g/dL (31.8-35.4); Mean Corpuscular Hemoglobin 28.3 pg (27.0-31.2); Mean Corpuscular Volume 84.2 fl (81-99); Mean Platelet Volume 10.2 fl (7.4-10.4); Monocytes # 0.6 K/mm3 (0.1-1.0); Monocytes % 6.5 % (1.7-9.3); Neutrophils # 6.3 K/mm3 (1.8-7.8); Neutrophils % 68.9 % (37.0-80.0); Platelet Count 177 K/mm3 (142-424); Red Blood Count 3.94 M/mm3 (4.20-5.40); Red Cell Distribution Width 14.7 % (11.5-17.5); White Blood Count 9.1 K/mm3 (4.8-10.8)
[2022-06-08 07:54] LABS: Alanine Aminotransferase 13 U/L (12-78); Albumin Level 2.5 g/dl (3.5-5.0); Albumin/Globulin Ratio 0.9 (1.1-1.8); Alkaline Phosphatase 145 U/L (38-126); Anion Gap 9.7 mEq/L (5-15); Aspartate Amino Transferase 54 U/L (14-36); Bilirubin,Total 0.6 mg/dl (0.2-1.3); Blood Urea Nitrogen 31 mg/dl (7-17); Calcium 8.3 mg/dl (8.4-10.2); Carbon Dioxide 25 mmol/L (22.0-30.0); Chloride 104 mmol/L (98-107); Creatine Kinase 873 U/L (30-135); Creatinine Clearance Estimated 41 mL/min (50-200); Estimated Glomerular Filt Rate 95 ml/min (>60); GFR (African American) 115 ML/MIN (>60); Globulin 2.9 g/dL (1.3-3.2); Glucose 93 mg/dl (74-100); Magnesium 1.6 mg/dl (1.6-2.3); Potassium 4.7 mmoL/L (3.5-5.1); Sodium 134 mmol/L (136-145); Total Protein,Serum 5.4 g/dl (6.3-8.2)
[2022-06-08 08:00] VITALS: BP 94/64; PULSE 71; RESP 16; TEMP 36.6; O2SAT 97
[2022-06-08 08:19] LABS: Coronavirus 19, PCR Not Detected (NotDetected); Influenza A, PCR Not Detected (NotDetected); Influenza B, PCR Not Detected (NotDetected)
--- NOTE | 2022-06-08 09:20 | PC.NURSE ---
IV AND GILL CATH REMOVED, WAITING ON AMBULANCE FOR TRANSFER TO [facility]
--- NOTE | 2022-06-08 09:22 | PC.NURSE ---
saline lock and khalil cath removed. Pt is alert and appropriate. Denies any pain @ this time. [facility] report [facility]. Contacted [facility] to notify of discharge to snf. awaiting EMS
--- NOTE | 2022-06-09 11:49 | CARE MANAGER ---
Spoke with nurse Capone, and she states that the patient is doing well and has no issues at this time.
== END 2022-06-08 09:55 | DRG 563 ==
LOC: ER 15:53 → 2ND 17:38
PROVIDERS: Admitting Provider Internal Medicine Adolescent Medicine; Emergency Provider Emergency Medicine; Visit Provider Internal Medicine Adolescent Medicine
DX: S42.212A Unspecified displaced fracture of surgical neck of left humerus, initial encounter for closed fracture (principal); M62.82 Rhabdomyolysis; E46 Unspecified protein-calorie malnutrition; I44.0 Atrioventricular block, first degree; I10 Essential (primary) hypertension; E03.9 Hypothyroidism, unspecified; F41.9 Anxiety disorder, unspecified; Z68.22 Body mass index [BMI] 22.0-22.9, adult; Z79.899 Other long term (current) drug therapy; W01.0XXA Fall on same level from slipping, tripping and stumbling without subsequent striking against object, initial encounter; Y92.019 Unspecified place in single-family (private) house as the place of occurrence of the external cause; R25.1 Tremor, unspecified; I34.0 Nonrheumatic mitral (valve) insufficiency
CPT/HCPCS: 36415; 71045; 72170; 73020; 80048; 80053; 81001; 82550; 83735; 84484; 85007; 85025; 93005; 97162; 97165; 97530; 97535; 99285; C9803; G0378; U0003; U0005

== ENCOUNTER → 2022-06-22 14:36 | Outpatient (CLI) | payer MEDICARE, OTHER, SELFPAY ==
--- NOTE | 2022-06-22 14:45 | XR_ITS ---
FINAL REPORT CLINICAL HISTORY: humerus fracture COMPARISON: June 06, 2022 FINDINGS: 2 views of the left humerus were obtained. There is an impacted partially healed fracture of the proximal left humerus. The glenohumeral joint is intact. There is mild hypertrophic change of the AC joint. There is no acute soft tissue abnormality. IMPRESSION: Partially healed impacted proximal humerus fracture. Reviewed, Interpreted and Dictated by Ashwin Sepulveda MD Transcribed by Albino Lau Authenticated and . [facility]
== END ==
PROVIDERS: PCP Emergency Medicine; Visit Provider Orthopaedic Surgery
DX: S42.212A Unspecified displaced fracture of surgical neck of left humerus, initial encounter for closed fracture (principal)
CPT/HCPCS: 73060

== ENCOUNTER → 2022-07-13 20:07 | Outpatient (CLI) | payer MEDICARE, OTHER, SELFPAY ==
[2022-07-13 20:19] LABS: Microscopic, Urine URINE MICROSCOPIC (MICROSCOPIC)
[2022-07-13 20:45] LABS: Appearance,Urine CLEAR (Clear); Bilirubin,Urine Negative (Negative); Blood, Urine TRACE-I (Negative); Color,Urine YELLOW (Yellow); Glucose,Urine (UA) Negative (Negative); Ketones,Urine Negative (Negative); Leukocyte Esterase,Urine 2+ (Negative); Nitrate,Urine Negative (Negative); PH,Urine 6.5 (5.0-8.5); Protein,Urine Negative (Negative); Urobilinogen,Urine 0.2 EU/dl (0.2)
[2022-07-13 21:30] LABS: Bacteria,Urine 3+ /lpf; RBC,Urine Occasional #/hpf (0-3); Squamous Epithelial Cell,Urine Occasional #/hpf (0-5)
== END ==
PROVIDERS: PCP Nurse Practitioner Family; Visit Provider Nurse Practitioner Family
DX: R53.1 Weakness (principal); R41.0 Disorientation, unspecified; R82.998 Other abnormal findings in urine; B96.29 Other Escherichia coli [E. coli] as the cause of diseases classified elsewhere
CPT/HCPCS: 81001; 87086; 87088; 87186

== ENCOUNTER → 2022-08-15 12:14 | Outpatient (CLI) | payer MEDICARE, MEDICAID, SELFPAY ==
[2022-08-15 17:43] LABS: Basophils # 0.1 K/mm3 (0-0.2); Basophils % 0.4 % (0.1-2.0); Eosinophils # 0.1 K/mm3 (0.0-0.4); Eosinophils % 1.1 % (0.1-12.0); Hemoglobin 12.9 g/dL (12.2-16.2); Lymphocytes # 2.3 K/mm3 (0.7-4.5); Lymphocytes % 18.3 % (10-50); Mean Corpuscular HGB Conc 32.3 g/dL (31.8-35.4); Mean Corpuscular Hemoglobin 28.5 pg (27.0-31.2); Mean Corpuscular Volume 88.4 fl (81-99); Monocytes # 0.9 K/mm3 (0.1-1.0); Monocytes % 7.2 % (1.7-9.3); Neutrophils # 9.3 K/mm3 (1.8-7.8); Neutrophils % 73.1 % (37.0-80.0); Platelet Count 428 K/mm3 (142-424); Red Blood Count 4.52 M/mm3 (4.20-5.40); Red Cell Distribution Width 15.1 % (11.5-17.5); White Blood Count 12.8 K/mm3 (4.8-10.8)
[2022-08-15 18:00] LABS: Chloride 101 mmol/L (98-107); Potassium 4.1 mmoL/L (3.5-5.1); Sodium 141 mmol/L (136-145)
[2022-08-15 18:03] LABS: Alanine Aminotransferase 12 U/L (12-78); Albumin Level 3.6 g/dl (3.5-5.0); Alkaline Phosphatase 128 U/L (38-126); Anion Gap 12.1 mEq/L (5-15); Aspartate Amino Transferase 25 U/L (14-36); Bilirubin,Total 0.5 mg/dl (0.2-1.3); Blood Urea Nitrogen 31 mg/dl (7-17); Calcium 8.7 mg/dl (8.4-10.2); Carbon Dioxide 32 mmol/L (22.0-30.0); Estimated Glomerular Filt Rate 80 ml/min (>60); GFR (African American) 96 ML/MIN (>60); Globulin 3.6 g/dL (1.3-3.2); Glucose 95 mg/dl (74-100); Total Protein,Serum 7.2 g/dl (6.3-8.2)
== END ==
PROVIDERS: PCP Nurse Practitioner Family; Visit Provider Internal Medicine Adolescent Medicine
DX: R19.7 Diarrhea, unspecified (principal)
CPT/HCPCS: 80053; 85025

== ENCOUNTER → 2022-09-01 12:06 | Outpatient (CLI) | payer MEDICARE, MEDICAID, SELFPAY ==
[2022-09-01 12:24] LABS: Basophils # 0.1 K/mm3 (0-0.2); Basophils % 0.3 % (0.1-2.0); Eosinophils # 0.1 K/mm3 (0.0-0.4); Eosinophils % 0.4 % (0.1-12.0); Hematocrit 38.5 % (37.0-47.0); Hemoglobin 12.3 g/dL (12.2-16.2); Lymphocytes # 1.5 K/mm3 (0.7-4.5); Lymphocytes % 9.1 % (10-50); Mean Corpuscular HGB Conc 31.9 g/dL (31.8-35.4); Mean Corpuscular Volume 87.8 fl (81-99); Mean Platelet Volume 8.9 fl (7.4-10.4); Monocytes # 0.4 K/mm3 (0.1-1.0); Monocytes % 2.4 % (1.7-9.3); Neutrophils # 14.1 K/mm3 (1.8-7.8); Neutrophils % 87.8 % (37.0-80.0); Platelet Count 320 K/mm3 (142-424); Red Blood Count 4.38 M/mm3 (4.20-5.40); Red Cell Distribution Width 15.2 % (11.5-17.5); White Blood Count 16.1 K/mm3 (4.8-10.8)
[2022-09-01 12:25] LABS: MANUAL DIFFERENTIAL MANUAL DIFFERENTIAL (MANUAL DIFF)
[2022-09-01 12:53] LABS: Lymphocytes % 15 % (10-50); Monocytes % 3 % (2-9); Neutrophils % 82 % (42-76); Platelet Estimate Normal; RBC Morphology Normal; Total Cells Counted 100
[2022-09-01 13:08] LABS: Alanine Aminotransferase 11 U/L (12-78); Albumin Level 3.5 g/dl (3.5-5.0); Alkaline Phosphatase 104 U/L (38-126); Anion Gap 8.4 mEq/L (5-15); Aspartate Amino Transferase 23 U/L (14-36); Bilirubin,Total 0.8 mg/dl (0.2-1.3); Blood Urea Nitrogen 26 mg/dl (7-17); Calcium 8.8 mg/dl (8.4-10.2); Carbon Dioxide 34 mmol/L (22.0-30.0); Chloride 99 mmol/L (98-107); Estimated Glomerular Filt Rate 68 ml/min (>60); GFR (African American) 83 ML/MIN (>60); Globulin 3.4 g/dL (1.3-3.2); Glucose 100 mg/dl (74-100); Potassium 3.4 mmoL/L (3.5-5.1); Sodium 138 mmol/L (136-145); Total Protein,Serum 6.9 g/dl (6.3-8.2)
== END ==
PROVIDERS: PCP Internal Medicine Adolescent Medicine; Visit Provider Nurse Practitioner Family
DX: E03.9 Hypothyroidism, unspecified (principal)
CPT/HCPCS: 80053; 85007; 85025

== ENCOUNTER → 2023-01-18 00:39 | Outpatient (CLI) | payer MEDICARE, MEDICAID, SELFPAY ==
[2023-01-18 01:00] LABS: Microscopic, Urine URINE MICROSCOPIC (MICROSCOPIC)
[2023-01-18 01:15] LABS: Appearance,Urine CLEAR (Clear); Bilirubin,Urine Negative (Negative); Blood, Urine 1+ (Negative); Color,Urine YELLOW (Yellow); Glucose,Urine (UA) Negative (Negative); Ketones,Urine Negative (Negative); Leukocyte Esterase,Urine Negative (Negative); Nitrate,Urine Negative (Negative); PH,Urine 5.5 (5.0-8.5); Protein,Urine Negative (Negative); Specific Gravity, Urine >= 1.030 (1.005-1.030); Urobilinogen,Urine 0.2 EU/dl (0.2)
[2023-01-18 01:31] LABS: Bacteria,Urine 3+ /lpf; Mucus,Urine 1+ /lpf
== END ==
PROVIDERS: Nurse Practitioner Family; PCP Internal Medicine Adolescent Medicine; Visit Provider Internal Medicine Adolescent Medicine
DX: R41.3 Other amnesia (principal); B96.29 Other Escherichia coli [E. coli] as the cause of diseases classified elsewhere; B96.5 Pseudomonas (aeruginosa) (mallei) (pseudomallei) as the cause of diseases classified elsewhere
CPT/HCPCS: 81001; 87086; 87088; 87186

== ENCOUNTER → 2023-02-02 08:35 | Outpatient (CLI) | payer MEDICARE, MEDICAID, SELFPAY ==
--- NOTE | 2023-02-02 08:49 | CT_ITS ---
FINAL REPORT TECHNIQUE: Axial CT images of the abdomen and pelvis were obtained before and after the administration of IV contrast. This study was performed with techniques to keep radiation doses as low as reasonably achievable (ALARA). Individualized dose reduction techniques using automated exposure control or adjustment of mA and/or kV according to the patient''s size were employed. CLINICAL HISTORY: RECURRENT UTI,WEIGHT LOSS,VOMITING COMPARISON: None FINDINGS: Abdomen: Mild atelectasis in the lung bases. The heart is normal in size. The liver has an unremarkable appearance, without evidence of mass or biliary duct dilatation. Postcholecystectomy. The spleen is unremarkable. No adrenal masses present. The pancreas has an unremarkable appearance. The kidneys enhance normally. No evidence of renal stone. The aorta is normal in caliber. There is no free fluid or adenopathy. No mass or abnormal fluid collection is seen. There is a small umbilical hernia containing fat. The sac measures approximately 4.3 cm in transverse dimension. There is a large periumbilical hernia. Hernia orifice measures 3.6 cm in transverse dimension and the sac measures 20 cm in transverse dimension. The hernia contains a portion of stomach antrum and much of the transverse colon. There is no evidence of bowel obstruction. Precontrast images demonstrate no evidence of nephrolithiasis. Pelvis: The appendix is not well visualized. The urinary bladder is unremarkable. No inflammatory process is seen. There is no evidence of mass or adenopathy. There is sigmoid diverticulosis. There is a low-attenuation in the central uterus which may represent endometrial fluid. IMPRESSION: Small umbilical hernia containing fat. Large periumbilical hernia containing a portion of stomach antrum and much of the transverse colon without evidence of bowel obstruction. Diverticulosis. Possible endometrial fluid. Reviewed, Interpreted and Dictated by Amor Blandon III, MD Transcribed by Jennifer Lima Authenticated and [facility]
== END ==
PROVIDERS: PCP Internal Medicine Adolescent Medicine; Visit Provider Internal Medicine Adolescent Medicine
DX: N39.0 Urinary tract infection, site not specified (principal); R63.4 Abnormal weight loss; R11.10 Vomiting, unspecified
CPT/HCPCS: 74178; Q9967

== ENCOUNTER 2023-09-05 15:20 | Outpatient (CLI) | payer MEDICARE, MEDICAID, SELFPAY ==
[2023-09-05 15:40] LABS: Microscopic, Urine URINE MICROSCOPIC (MICROSCOPIC)
[2023-09-05 15:51] LABS: Basophils % 0.3 % (0.1-2.0); Eosinophils # 0.1 K/mm3 (0.0-0.4); Eosinophils % 1.5 % (0.1-12.0); Hematocrit 41.8 % (37.0-47.0); Hemoglobin 14.1 g/dL (12.2-16.2); Lymphocytes # 2.1 K/mm3 (0.7-4.5); Mean Corpuscular HGB Conc 33.9 g/dL (31.8-35.4); Mean Corpuscular Hemoglobin 28.5 pg (27.0-31.2); Mean Corpuscular Volume 84.2 fl (81-99); Mean Platelet Volume 8.6 fl (7.4-10.4); Monocytes # 0.5 K/mm3 (0.1-1.0); Monocytes % 5.5 % (1.7-9.3); Neutrophils # 5.8 K/mm3 (1.8-7.8); Neutrophils % 67.7 % (37.0-80.0); Platelet Count 297 K/mm3 (142-424); Red Blood Count 4.96 M/mm3 (4.20-5.40); Red Cell Distribution Width 14.3 % (11.5-17.5); White Blood Count 8.6 K/mm3 (4.8-10.8)
[2023-09-05 15:54] LABS: Appearance,Urine SL CLOUDY (Clear); Bilirubin,Urine Negative (Negative); Blood, Urine 1+ (Negative); Glucose,Urine (UA) Negative (Negative); Ketones,Urine Negative (Negative); Leukocyte Esterase,Urine 2+ (Negative); Nitrate,Urine POSITIVE (Negative); Protein,Urine Negative (Negative); Specific Gravity, Urine 1.015 (1.005-1.030); Urobilinogen,Urine 0.2 EU/dl (0.2)
[2023-09-05 15:59] LABS: Chloride 103 mmol/L (98-107); Potassium 4.2 mmoL/L (3.5-5.1); Sodium 136 mmol/L (136-145)
[2023-09-05 16:02] LABS: Blood Urea Nitrogen 10 mg/dl (7-17); Estimated Glomerular Filt Rate 80 ml/min (>60); GFR (African American) 96 ML/MIN (>60)
[2023-09-05 16:03] LABS: Anion Gap 8.2 mEq/L (5-15); Carbon Dioxide 29 mmol/L (22.0-30.0); Glucose 97 mg/dl (74-100)
[2023-09-05 16:12] LABS: Color,Urine Yellow (Yellow)
[2023-09-05 16:25] LABS: Bacteria,Urine 3+ /lpf; Squamous Epithelial Cell,Urine Occasional #/hpf (0-5); WBC,Urine 20-50 #/hpf (0-3)
== END 2023-09-05 23:59 ==
PROVIDERS: PCP Nurse Practitioner Family; Visit Provider Nurse Practitioner Family
DX: R45.1 Restlessness and agitation (principal); R41.0 Disorientation, unspecified; N39.0 Urinary tract infection, site not specified; B96.29 Other Escherichia coli [E. coli] as the cause of diseases classified elsewhere
CPT/HCPCS: 80048; 81001; 85025; 87086

== ENCOUNTER 2023-10-17 16:39 | Outpatient (CLI) | payer MEDICARE, MEDICAID, SELFPAY ==
[2023-10-17 16:57] LABS: Microscopic, Urine URINE MICROSCOPIC (MICROSCOPIC)
[2023-10-17 18:35] LABS: Appearance,Urine CLOUDY (Clear); Blood, Urine 2+ (Negative); Color,Urine YELLOW (Yellow); Glucose,Urine (UA) Negative (Negative); Ketones,Urine Negative (Negative); Leukocyte Esterase,Urine TRACE (Negative); Nitrate,Urine POSITIVE (Negative); PH,Urine 6.5 (5.0-8.5); Protein,Urine TRACE (Negative); Specific Gravity, Urine 1.025 (1.005-1.030)
[2023-10-17 18:40] LABS: Bilirubin,Urine 1+ (Negative)
[2023-10-17 19:06] LABS: RBC,Urine 20-50 #/hpf (0-3)
[2023-10-17 19:07] LABS: Bacteria,Urine 4+ /lpf
== END 2023-10-17 23:59 ==
PROVIDERS: PCP Nurse Practitioner Family; Visit Provider Nurse Practitioner Family
DX: R44.3 Hallucinations, unspecified (principal); B95.2 Enterococcus as the cause of diseases classified elsewhere; N39.0 Urinary tract infection, site not specified
CPT/HCPCS: 81001; 87086

== ENCOUNTER 2023-11-26 17:34 | Outpatient (CLI) | payer MEDICARE, MEDICAID, SELFPAY | END 2023-11-26 23:59 | disposition home or self-care (01) | LOC: LAB.DROPOF 17:37 | PROVIDERS: PCP Nurse Practitioner Family; Visit Provider Nurse Practitioner Family | DX: R44.3 Hallucinations, unspecified (principal); B96.29 Other Escherichia coli [E. coli] as the cause of diseases classified elsewhere; R82.90 Unspecified abnormal findings in urine ==

== ENCOUNTER 2023-11-26 17:39 | Outpatient (CLI) | payer MEDICARE, MEDICAID, SELFPAY ==
[2023-11-26 18:58] LABS: Microscopic, Urine URINE MICROSCOPIC (MICROSCOPIC)
[2023-11-26 19:21] LABS: Appearance,Urine CLEAR (Clear); Blood, Urine TRACE-I (Negative); Color,Urine YELLOW (Yellow); Glucose,Urine (UA) Negative (Negative); Ketones,Urine Negative (Negative); Leukocyte Esterase,Urine TRACE (Negative); Nitrate,Urine POSITIVE (Negative); Protein,Urine 1+ (Negative)
[2023-11-26 19:29] LABS: Basophils # 0.1 K/mm3 (0-0.2); Basophils % 0.6 % (0.1-2.0); Eosinophils # 0.1 K/mm3 (0.0-0.4); Eosinophils % 1.3 % (0.1-12.0); Hematocrit 40.6 % (37.0-47.0); Hemoglobin 12.9 g/dL (12.2-16.2); Lymphocytes # 2.9 K/mm3 (0.7-4.5); Lymphocytes % 33.5 % (10-50); Mean Corpuscular HGB Conc 31.7 g/dL (31.8-35.4); Mean Corpuscular Hemoglobin 27.6 pg (27.0-31.2); Mean Corpuscular Volume 87.3 fl (81-99); Mean Platelet Volume 8.5 fl (7.4-10.4); Monocytes # 0.6 K/mm3 (0.1-1.0); Monocytes % 6.5 % (1.7-9.3); Neutrophils % 58.2 % (37.0-80.0); Platelet Count 308 K/mm3 (142-424); Red Blood Count 4.65 M/mm3 (4.20-5.40); Red Cell Distribution Width 15.1 % (11.5-17.5); White Blood Count 8.6 K/mm3 (4.8-10.8)
[2023-11-26 19:31] LABS: Bilirubin,Urine 1+ (Negative)
[2023-11-26 19:42] LABS: Bacteria,Urine 4+ /lpf; WBC,Urine TNTC #/hpf (0-3)
[2023-11-26 20:14] LABS: Blood Urea Nitrogen 14 mg/dl (7-17); Carbon Dioxide 33 mmol/L (22.0-30.0); Chloride 99 mmol/L (98-107); Estimated Glomerular Filt Rate 95 ml/min (>60); GFR (African American) 115 ML/MIN (>60); Glucose 66 mg/dl (74-100); Sodium 137 mmol/L (136-145)
== END 2023-11-26 23:59 | disposition home or self-care (01) ==
LOC: LAB.DROPOF 17:41
PROVIDERS: PCP Nurse Practitioner Family; Visit Provider Nurse Practitioner Family
DX: R44.3 Hallucinations, unspecified (principal); B96.29 Other Escherichia coli [E. coli] as the cause of diseases classified elsewhere; R82.90 Unspecified abnormal findings in urine
CPT/HCPCS: 80048; 81001; 85025; 87086; 87088; 87186

== ENCOUNTER 2024-05-06 23:35 | Outpatient (CLI) | payer MEDICARE, MEDICAID, SELFPAY ==
[2024-05-06 23:47] LABS: Microscopic, Urine URINE MICROSCOPIC (MICROSCOPIC)
[2024-05-06 23:52] LABS: Appearance,Urine CLEAR (Clear); Bilirubin,Urine Negative (Negative); Blood, Urine TRACE-L (Negative); Color,Urine YELLOW (Yellow); Glucose,Urine (UA) Negative (Negative); Ketones,Urine Negative (Negative); Leukocyte Esterase,Urine 2+ (Negative); Nitrate,Urine POSITIVE (Negative); PH,Urine 6.5 (5.0-8.5); Protein,Urine Negative (Negative); Urobilinogen,Urine 0.2 EU/dl (0.2)
[2024-05-07 00:06] LABS: WBC,Urine TNTC #/hpf (0-3)
[2024-05-07 00:07] LABS: Bacteria,Urine 4+ /lpf
== END 2024-05-06 23:59 | disposition home or self-care (01) ==
PROVIDERS: PCP Nurse Practitioner Family; Visit Provider Nurse Practitioner Family
DX: R30.0 Dysuria (principal); R41.0 Disorientation, unspecified
CPT/HCPCS: 81001; 87086; 87088; 87186

== ENCOUNTER 2024-08-06 03:26 | Inpatient (IN) | payer MEDICARE, MEDICAID, SELFPAY ==
[2024-08-06] VITALS (12 sets, daily range): BP systolic 110–206; BP diastolic 56–96; PULSE 80–113; RESP 13–20; TEMP 36.1–37.4; O2SAT 95–100; BMI 29.9
--- NOTE | 2024-08-06 03:21 | CT_ITS ---
PROCEDURE INFORMATION: Exam: CT Abdomen And Pelvis With Contrast Exam date and time: 08/06/2024 3:59 AM Age: 84 years old Clinical indication: Vomiting; Additional info: Vomiting, known hernia TECHNIQUE: Imaging protocol: Computed tomography of the abdomen and pelvis with contrast. Radiation optimization: All CT scans at this facility use at least one of these dose optimization techniques: automated exposure control; mA and/or kV adjustment per patient size (includes targeted exams where dose is matched to clinical indication); or iterative reconstruction. Contrast material: ISOVUE; Contrast volume: 75 ml; Contrast route: IV; COMPARISON: CT ABDOMEN PELVIS WO/W CON 02/02/2023 9:00 AM FINDINGS: Lungs: Posterior right upper lobe perifissural nodularity, measuring about 11 x 27 mm. Heart: Base of heart is unremarkable as visualized. Esophagus: Distal esophagus is collapsed, however does demonstrate wall thickening and mucosal enhancement. Liver: Normal. No mass. Gallbladder and biliary ducts: Status post cholecystectomy. Pancreas: Pancreatic atrophy. Spleen: Splenic granulomas. Adrenal glands: Normal. No mass. Kidneys and ureters: Normal. No hydronephrosis. Stomach and bowel: Diverticulosis without evidence of diverticulitis. Mild colonic stool burden. Appendix: No evidence of appendicitis. Intraperitoneal space: Unremarkable. No free air. No significant fluid collection. Vasculature: Minimal atherosclerotic disease. Lymph nodes: Calcified mediastinal lymph nodes. Urinary bladder: Unremarkable as visualized. Reproductive: Stable cyst within the atrophic uterus measuring 1.5 x 2.1 x 1.4 cm (series 7, image 103; series 1002, image 67). Bones/joints: Diffuse degenerative change of the visualized osseous structures. Diffuse demineralization of the visualized osseous structures. Compression deformity of L3, stable from 02/02/2023. Soft tissues: Large umbilical hernia containing distal stomach, and the transverse colon. Hernia measures 8.1 x 19.6 x 15.1 cm. Fascial defect measures about 3.5 x 3.3 cm (series 7, image 89; series 1002, image 61). Additional smaller fat containing hernia is noted at the superior and right lateral aspect of the larger hernia sac measuring 3.9 x 3.0 x 4.3 cm (series 7, image 87; series 1002, image 51). Fascial defect measures about 1.5 x 1.3 cm (series 7, image 86; series 1002, image 55). Proximal stomach is clearly distended with narrowing of the lumen of the umbilical hernia fascial defect. IMPRESSION: 1. Ventral abdominal hernia causing at least partial obstruction of the proximal stomach with the above details. Recommend surgical consultation. 2. Findings suggest nonspecific esophagitis. 3. Nodular infiltrate of the posterior right upper lobe. Recommend three-month interval follow-up for stability.
--- NOTE | 2024-08-06 03:21 | XR_ITS ---
PROCEDURE INFORMATION: Exam: XR Chest Exam date and time: 08/06/2024 3:44 AM Age: 84 years old Clinical indication: Other: Emesis TECHNIQUE: Imaging protocol: Radiologic exam of the chest. Views: 1 view. COMPARISON: CR XR CHEST PORTABLE 06/06/2022 3:08 PM FINDINGS: Lungs: Apical COPD changes. Pleural spaces: Nodular thickening along the right major fissure. Heart/Mediastinum: Unremarkable. No cardiomegaly. Bones/joints: Diffuse degenerative change of the visualized osseous structures. Diffuse demineralization of the visualized osseous structures. IMPRESSION: Nodular infiltrates seen along the right major fissure which was also seen on the concurrently performed CT of the abdomen and pelvis. Previous recommendation stands (three-month interval follow-up for stability). Correlate clinically with signs and symptoms of infection.
[2024-08-06 03:32] LABS: Basophils % 0.2 % (0.1-2.0); Eosinophils % 0.1 % (0.1-12.0); Hematocrit 40.8 % (37.0-47.0); Hemoglobin 13.1 g/dL (12.2-16.2); Lymphocytes # 1.9 K/mm3 (0.7-4.5); Lymphocytes % 10.9 % (10-50); Mean Corpuscular HGB Conc 32.1 g/dL (31.8-35.4); Mean Corpuscular Hemoglobin 26.9 pg (27.0-31.2); Mean Corpuscular Volume 83.8 fl (81-99); Mean Platelet Volume 10.1 fl (7.4-10.4); Monocytes # 0.8 K/mm3 (0.1-1.0); Monocytes % 4.7 % (1.7-9.3); Neutrophils # 14.9 K/mm3 (1.8-7.8); Neutrophils % 83.6 % (37.0-80.0); Platelet Count 344 K/mm3 (142-424); Red Blood Count 4.87 M/mm3 (4.20-5.40); Red Cell Distribution Width 14.8 % (11.5-17.5); White Blood Count 17.8 K/mm3 (4.8-10.8)
[2024-08-06] MEDS: ONDANSETRON 4MG/2ML VIAL 4 MG IV (03:33)
[2024-08-06] MEDS: LACTATED RINGERS 1000ML 1,000 ML 999 ML IV (03:33)
--- NOTE | 2024-08-06 03:36 | ED_ITS ---
Discharge Plan Disposition Patient Disposition: Admitted Condition: Serious Chief Complaint: Nausea/Vomiting/Diarrhea Prescriptions Prescriptions: No Action levothyroxine 50 mcg tablet 50 mcg PO DAILY Patient Comments: TAKE ONE TABLET BY MOUTH EVERY DAY acetaminophen 325 mg Tablet 650 mg PO Q4HP PRN (Reason: Fever Or Mild Pain) Qty: 0 0RF Clinical Impressions Clinical Impression: Partial gastric outlet obstruction, Ventral hernia, Vomiting, Prerenal azotemia Print Language Print Language: Slovenian Discharge ED Provider: [facility] HPI General Chief complaint: Nausea/Vomiting/Diarrhea Stated complaint: vomiting Time Seen by Provider: 08/06/24 03:26 Mode of Arrival: EMS Source of Information: Patient, EMS and Medical Record Limitations: Altered Mental Status Description of Symptoms (Recalled from ER Triage Doc. by RN): Pt to ED via EMS from [facility]. The nurse at the facility wanted her seen in the ED tonight for vomiting X4 in 1-2 hours, and states pt has an umbilical hernia that she wants checked out. Pt has no complaints upon arrival. pt is alert, and oriented to self at baseline. History of Present Illness HPI narrative: 84-year-old female with history of hypothyroid, aphasia, hypertension presents to the ER from [facility] for concerns of 4 episodes of vomiting in the last 2 hours. Facility was concerned that patient has a history of umbilical hernia. EMS reports no medications were administered in route. Facility reports patient is oriented only to self at baseline. She has no complaints at this time, reports no pain. She states she has mild discomfort but cannot describe where. She denies headache, chest pain, abdominal pain. No reported recent injuries or falls. Reportedly patient has not had recent fever. She denies diarrhea or painful urination. Related Data Home Medications ?Medication ?Instructions ?Recorded ?Confirmed levothyroxine 50 mcg tablet 50 mcg PO DAILY hypothyroidism 06/07/22 08/03/22 Previous Rx's ?Medication ?Instructions ?Recorded acetaminophen 325 mg tablet 650 mg (2 x 325 mg) PO Q4HP PRN 06/07/22 Fever Or Mild Pain #0 tabs Allergies Allergy/AdvReac Type Severity Reaction Status Date / Time No Known Allergies Allergy Verified 08/03/22 14:07 [facility] Disclaimer: The information contained in this section may have been updated after the patient was seen, as this information can be updated by other users. Medical History Anxiety Cardiac murmur Dyspnea Hypothyroid Irregular heart rhythm Mitral valve regurgitation Social History Smoking Status: Unknown if ever smoked alcohol intake: never substance use type: denies use current occupational status: other Travel in the last 8 weeks: None housing: house Other Medical History Have you received the Flu Vaccine for this season: No Have you received the Pneumonia Vaccine: No ROS Obtained: Yes Systems reviewed as appropriate & no additional complaints except as documented Per HPI Physical Exam General General appearance: alert and in no apparent distress Head Head exam: atraumatic and normocephalic Eye Eye exam: Present PERRL and EOMI ENT ENT exam: Present mucous membranes moist Neck Neck exam: Present normal inspection and full ROM Chest Chest inspection: Present symmetric chest wall rise Respiratory Respiratory exam: Present normal lung sounds bilaterally; Absent respiratory distress, wheezes or stridor Cardiovascular Cardiovascular exam: Present regular rate and normal rhythm Abdominal Exam Abdominal exam: Present soft, tenderness (moderate epigastric discomfort with palpation) and hernia (Large, soft ventral wall hernia, mildly painful to palpation but no overlying skin changes. Not able to reduce.); Absent distention, guarding or rebound Extremities Exam Extremities exam: Present full ROM; Absent edema Neurological Exam Neurological exam: Present alert; Absent oriented X3 (Oriented to self and location, disoriented to year) or motor sensory deficit Psychiatric Psychiatric exam: Present normal affect and normal mood Skin Skin exam: Present warm and dry Medical Decision Making Medical Records Medical records reviewed: Yes I reviewed the patient's medical records. Screening: Per USPSTF and CDC recommendations, given the prevalence of disease in our region, it is our hospital?s policy to screen for HIV and viral Hepatitis for all patients aged 18 and over and those with ongoing risk factors. MR Comment: Records from the facility demonstrate patient is prescribed levothyroxine, pantoprazole. James Inquiry Pt receiving controlled substance: No Vital Signs: 08/06/24 03:21 08/06/24 03:31 Temperature 98.7 F Temperature Source Oral Pulse Rate 88 Pulse Rate [Left Radial] 86 Respiratory Rate 18 Blood Pressure 168/83 H Blood Pressure [Right Arm] 149/90 H Blood Pressure Mean 103 Blood Pressure Mean [Right Arm] 109 Blood Pressure Source [Right Arm] Automatic Cuff Blood Pressure Position [Right Arm] Sitting 02 Sat by Pulse Oximetry 96 96 Oxygen Delivery Method Room Air Room Air Lab Data Lab Results 08/06/24 03:21: WBC 17.8 H, RBC 4.87, Hgb 13.1, Hct 40.8, MCV 83.8, MCH 26.9 L, MCHC 32.1, RDW 14.8, Plt Count 344, MPV 10.1, Neut % (Auto) 83.6 H, Lymph % (Auto) 10.9, [place] % (Auto) 4.7, Eos % (Auto) 0.1, Baso % (Auto) 0.2, Neut # (Auto) 14.9 H, Lymph # (Auto) 1.9, [place] # (Auto) 0.8, Eos # (Auto) 0.0, Baso # (Auto) 0.0, Total Counted 100, Neutrophils % (Manual) 90 H, Lymphocytes % (Manual) 10, Platelet Estimate Normal, RBC Morphology Normal, PT 10.8, INR 0.96, Sodium 141, Potassium 3.6, Chloride 97 L, Carbon Dioxide 37 H, Anion Gap 10.6, B UN 21 H, Creatinine 0.60, Estimated Creat Clear 52, Estimated GFR 95, Est GFR ( Amer) 115, Glucose 122 H, Lactate 1.6, Calcium 9.4, Total Bilirubin 0.4, AST 31, ALT 18, Alkaline Phosphatase 156 H, Troponin I < 0.01, Total Protein 8.1, Albumin 4.0, Globulin 4.1 H, Albumin/Globulin Ratio 1.0 L, Lipase 244, TSH 4.58, Free T4 1.39 08/06/24 03:21 08/06/24 03:21 Orders (Tests/Meds): ED MEDICATIONS Discontinued Medications Generic Name Dose Route Start Last Admin Trade Name Freq PRN Reason Stop Dose Admin Lactated Ringer's 1,000 mls @ 999 mls/hr 08/06/24 03:21 08/06/24 03:33 Lactated Ringer's 1000 Ml Bag IV 08/06/24 04:21 999 mls/hr .Q1H1M ONE Administration Iopamidol 75 ml 08/06/24 04:12 08/06/24 04:13 Iopamidol-370 (76%);100ml Bottle IV 08/06/24 04:13 75 ml ONCE ONE Administration Ondansetron HCl 4 mg 08/06/24 03:21 08/06/24 03:33 Ondansetron 4mg/2ml Vial IV 08/06/24 03:22 4 mg ONCE ONE Administration Promethazine HCl 12.5 mg 08/06/24 04:35 Promethazine Hcl 25mg/Ml 1ml Vial IV 08/06/24 04:36 ONCE ONE Sodium Chloride 10 ml 08/06/24 04:12 08/06/24 04:13 Sodium Chloride 0.9% 10ml Syr (Rad Only) IV 08/06/24 04:13 10 ml ONCE ONE Administration Sodium Chloride 25 ml 08/06/24 04:35 Sodium Chloride 0.9% 25ml Bag IV 08/06/24 04:36 ONCE ONE ORDERS Category Date Time Status CT abdomen pelvis w con Stat Cat Scan 08/06/24 03:21 Completed CXR --portable [XR chest portable] Stat Exams 08/06/24 03:21 Completed KUB (single view) [XR KUB] Stat Exams 08/06/24 04:35 Completed CBC w/Auto Diff [Complete Blood Count Auto Diff] Stat Lab 08/06/24 03:21 Completed CMP [Comprehensive Metabolic Panel] Stat Lab 08/06/24 03:21 Completed Free T4 (Free Thyroxine) Stat Lab 08/06/24 03:21 Completed HIV Combo Stat Lab 08/06/24 03:31 Ordered Hepatitis C Ab Qual. W/ RFX Stat Lab 08/06/24 03:31 Ordered Lactic Acid Stat Lab 08/06/24 03:21 Completed Lipase Stat Lab 08/06/24 03:21 Completed Occult Blood,Gastric Fluid Stat Lab 08/06/24 04:33 Ordered PT INR [Prothrombin Time INR] Stat Lab 08/06/24 03:21 Completed Rapid PCR Covid and Flu A/B Stat Lab 08/06/24 03:22 Ordered TSH [Thyroid Stimulating Hormone] Stat Lab 08/06/24 03:21 Completed Trop I [Troponin I] Stat Lab 08/06/24 03:21 Completed Troponin I Q3H Lab 08/06/24 06:30 Ordered Troponin I Q3H Lab 08/06/24 09:30 Ordered Urinalysis and Microscopic Stat Lab 08/06/24 03:21 Ordered Medical Decision Narrative: In summary, this 84-year-old female with comorbidities described in the HPI presents to the emergency department today with emesis in the setting of known hernia. On initial evaluation patient is hemodynamically stable, afebrile, pleasantly confused but at baseline, GCS 14, no focal neurologic deficits, exam notable for obvious ventral hernia that is soft without overlying skin changes but not reducible, mild to moderate tenderness to palpation of the abdomen without rebound or guarding, remainder of exam reassuring. Differential diagnosis includes but is not limited to incarcerated or strangulated hernia, lactic acidosis, bowel obstruction, viral syndrome, urinary tract infection, also considered atypical presentation of ACS. Based on these concerns, I ordered serum labs, cardiac workup, CT abdomen pelvis, urine studies. ECG personally interpreted demonstrates sinus rhythm, rate 75, normal axis, normal LA and QTc, no STEMI. Patient received IV fluids, Zofran initially for treatment. Labs personally reviewed demonstrate leukocytosis with WBC 17.8, nonspecific, lactic normal 1.6, initial troponin undetectably low less than 0.01, no acutely actionable electrolyte abnormality, patient has mild prerenal azotemia and is receiving IV fluids, she does not have anemia, hemoglobin 13.1, normal platelets, PT/INR normal. XR personally interpreted demonstrates no acute intrathoracic abnormality, see radiology read for final interpretation. CT imaging personally interpreted demonstrate distended stomach, I am concerned about gastric outlet obstruction secondary to hernia, there does not appear to be pneumatosis or strangulation of the intestine within the hernia sac, however the stomach is distended with fluid contents. Based on my personal interpretation, NG tube was placed to low intermittent wall suction. Brown contents were aspirated from the stomach so gastric occult was ordered. Radiology read pending. Review of previous CTs demonstrates patient has not always had this large, distended stomach. The contents within the hernia sac appear similar to prior however they are only gas-filled whereas her most recent CT from January 2023 demonstrates they had stool. Patient had emesis despite NG tube placement so IV Phenergan was administered. Post NG tube placement KUB was personally interpreted demonstrating the tube was initially deep so it was retracted 5 cm and on repeat x-ray was more appropriately positioned in the low to mid stomach. They continues to drain and after less than 20 minutes has already output more than 700 mL. Since patient does not have decision-making capacity with her lack of full orientation at baseline, I am waiting for the final CT reads to have full understanding of all potential abnormalities in the abdomen and pelvis prior to contacting family to discuss options for care. CT read resulted with findings concerning for a same things I appreciated including at least partial obstruction. See radiology read for full interpretation. [id number] With these results finalized, I reached out to family and initially spoke with the patient's [id number]-xob, Mildred Lara. We discussed patient's current condition and option for possible surgical intervention, she does not believe that is something that the patient or family would want for her, but she is going to wake up her , the patient's brother, and they will call back. IV zosyn administered for concern of possible abdominal infection with the obstruction and elevated WBC. Gastric occult blood negative. Leticia Lara, the patient's brother, called back to the ER. I had a detailed conversation with him regarding patient's current findings, CT imaging, and her current status as well as the interventions we have done in the ER so far. After discussion with him and offering the option of surgical evaluation/intervention as well as transfer, he refused. He stated that the patient is DNR/DNI and they do not want any surgical intervention. He understands that the patient could of this condition without surgical intervention. [id number] Mildred also expressed this and agrees. Family was given the opportunity to ask questions which were answered to their satisfaction. Ultimately they are comfortable with the patient having conservative management including NG tube, bowel rest, IV fluids, but do not want any surgical intervention and patient is to remain DNR/DNI. They understand this could all lead to the patient's demise without surgical intervention. They understand that the patient will not be transferred to a higher level of care at this time for surgical evaluation or intervention and they do not wish for patient to have surgery at this facility either. They understand that the patient will be admitted to our facility for continued conservative management and that they we will likely have to have more conversations about the patient's wishes and possible comfort care and end of life care with the hospital team during the admission. Family has full understanding of this and is in agreement with this plan. TIERNEY Sanchez confirmed this independently with the family and appropriate facility DNR/DNI paperwork was completed. After completing this conversation, I contacted the hospitalist and discussed this case with her. We discussed the patient's family's wishes and goals of care at this time. She is in agreement with this plan. Patient was graciously excepted to the hospitalist service for continued management. She was admitted in serious but somewhat improved condition. Procedures Risk/Benefits of Procedure(s) Were Explained: Yes Miscellaneous Procedure Procedure Performed: Ultrasound-guided IV Indication: Need for peripheral IV access Location: Left upper extremity Area was prepped with alcohol swab that was allowed to dry. Sterile gel used. 20-gauge IV placed in left AC under ultrasound guidance. Flushes and draws. Secured with Tegaderm. Neurovascularly intact before and after procedure with no change in status. Patient tolerated procedure well. Critical Care Critical Care Time Critical Care Time: No
[2024-08-06 03:37] LABS: MANUAL DIFFERENTIAL MANUAL DIFFERENTIAL (MANUAL DIFF)
[2024-08-06 03:39] LABS: Chloride 97 mmol/L (98-107); Sodium 141 mmol/L (136-145)
[2024-08-06 03:40] LABS: Potassium 3.6 mmoL/L (3.5-5.1)
[2024-08-06 03:42] LABS: Alanine Aminotransferase 18 U/L (12-78); Anion Gap 10.6 mEq/L (5-15); Aspartate Amino Transferase 31 U/L (14-36); Blood Urea Nitrogen 21 mg/dl (7-17); Carbon Dioxide 37 mmol/L (22.0-30.0); Creatinine Clearance Estimated 52 mL/min (50-200); Estimated Glomerular Filt Rate 95 ml/min (>60); GFR (African American) 115 ML/MIN (>60); Lactic Acid 1.6 mmol/L (0.7-2.1)
--- NOTE | 2024-08-06 03:42 | ECG_ITS ---
APPROVED REPORT Exam: Resting ECG HR:75 bpm ECG Measurements Heart Rate 75 AXES AK 204 P 44 QRSd 98 QRS -10 QT 390 T 24 QTc 419 Conclusion SINUS RHYTHM POSSIBLE ANTERIOR MYOCARDIAL INFARCTION , PROBABLY OLD [30 ms Q WAVE IN V3/V4, OR R < 0.2 mV IN V4] No STEMI Electronically signed by : TARIQ JOYA, 08/06/2024 06:43:36
[2024-08-06 03:43] LABS: Alkaline Phosphatase 156 U/L (38-126); Bilirubin,Total 0.4 mg/dl (0.2-1.3); Calcium 9.4 mg/dl (8.4-10.2); Globulin 4.1 g/dL (1.3-3.2); Glucose 122 mg/dl (74-100); INR 0.96 (0.9-1.1); Lipase 244 U/L (23-300); Prothrombin Time 10.8 seconds (10.1-12.5); Total Protein,Serum 8.1 g/dl (6.3-8.2)
--- NOTE | 2024-08-06 03:46 | PC.NURSE ---
xray done at bedside
--- NOTE | 2024-08-06 03:50 | PC.NURSE ---
pt is confused but denies pain and does not appear to be in pain.
--- NOTE | 2024-08-06 03:54 | PC.NURSE ---
pt to CT at this time
[2024-08-06 04:00] LABS: Free T4 (Free Thyroxine) 1.39 ng/dl (0.78-2.19)
[2024-08-06] MEDS: SODIUM CHLORIDE 0.9% 10ML SYR (RAD ONLY) 10 ML IV (04:13)
[2024-08-06] MEDS: IOPAMIDOL-370 (76%);100ML BOTTLE 75 ML IV (04:13)
[2024-08-06 04:15] LABS: Thyroid Stimulating Hormone 4.58 uIU/mL (0.465-4.68)
[2024-08-06 04:19] LABS: Troponin I < 0.01 ng/ml (0.00-0.034)
--- NOTE | 2024-08-06 04:35 | XR_ITS ---
PROCEDURE INFORMATION: Exam: XR Abdomen Exam date and time: 08/06/2024 4:44 AM Age: 84 years old Clinical indication: Device placement; Gi device; Nasogastric tube; Additional info: Ngt placement TECHNIQUE: Imaging protocol: Radiologic exam of the abdomen. Views: Frontal supine view of the abdomen. 1 View. COMPARISON: CT ABDOMEN PELVIS W CON 08/06/2024 3:59 AM FINDINGS: Tubes, catheters and devices: Enteric tube traverses midline, subdiaphragmatic in the left upper quadrant. Pleural spaces: Nodular thickening along the right major fissure. Gastrointestinal tract: Redemonstrated of significantly distended stomach. Organs: Contrast within the renal collecting system. Status post cholecystectomy. Bones/joints: Diffuse degenerative change of the visualized osseous structures. IMPRESSION: 1. Enteric tube as above. 2. Above findings better detailed on comparative cross-sectional evaluation performed concurrently.
--- NOTE | 2024-08-06 04:47 | PC.NURSE ---
NG tube placed Placement verified by PH and auscultation. Xray done at bedside and NG pulled back to 60cm nare line
[2024-08-06 04:56] LABS: Lymphocytes % 10 % (10-50); Neutrophils % 90 % (42-76); Platelet Estimate Normal; RBC Morphology Normal; Total Cells Counted 100
--- NOTE | 2024-08-06 05:29 | PC.NURSE ---
khalil catheter inserted and UA sent to lab. Khalil draining yellow urine. gastric content collected from NG tube, and nose swabbed for resp panel and both sent to lab. NG tube draining brown gastric fluid. pt repositioned in bed. call light in reach.
[2024-08-06 05:51] LABS: Coronavirus 19, PCR Not Detected (NotDetected); Influenza A, PCR Not Detected (NotDetected); Influenza B, PCR Not Detected (NotDetected); Microscopic, Urine URINE MICROSCOPIC (MICROSCOPIC)
[2024-08-06 05:56] LABS: Occult Blood,Gastric Fluid Negative (Negative)
[2024-08-06 05:58] LABS: Appearance,Urine CLEAR (Clear); Bilirubin,Urine Negative (Negative); Blood, Urine TRACE-I (Negative); Color,Urine YELLOW (Yellow); Glucose,Urine (UA) Negative (Negative); Ketones,Urine Negative (Negative); Leukocyte Esterase,Urine TRACE (Negative); Nitrate,Urine Negative (Negative); PH,Urine 8.5 (5.0-8.5); Protein,Urine TRACE (Negative)
--- NOTE | 2024-08-06 06:02 | PC.NURSE ---
spoke with pts brother, Leticia Lara, over the phone and verified that he would like the pt to stay here at [facility], and would not like any surgical interventions performed. Also confirmed continuing DNR status from nursing facility and verified farzaneh Floyd RN and Cl Arce MD. Appropriate paperwork completed and signed.
[2024-08-06 06:07] LABS: Bacteria,Urine 1+ /lpf
[2024-08-06] MEDS: PROMETHAZINE HCL 25MG/ML 1ML VIAL 12.5 MG IV (06:21)
--- NOTE | 2024-08-06 06:33 | P.HP_ITS ---
<Statement entered by Andre Lomax MD - 08/13/24 10:29> Personally examined patient and agree with the plan of care as outlined by the LOFTER. History of Present Illness *Admission Date: 08/06/24 *Reason for visit:: vomiting *History of present illness: This is an 84-year-old female with a past medical history of hypothyroidism, aphasia, hypertension who presents from her nursing facility for episodes of vomiting.? Facility was concerned about the patient's history of umbilical hernia and noticed that she had been vomiting for approximately 2 hours.? They sent her to the emergency department for further evaluation.? The patient does admit to some mild abdominal discomfort but cannot provide any further details due to baseline mental status.? Deny headache, fever, chest pain.? Denies any fever that she is aware of.? Denies any diarrhea or difficulty with urination.Emergency department workup notable for leukocytosis with a white count of 17, normal lactic acid.? All other laboratory evaluations are mostly unremarkable.? CT imaging obtained and concerns for gastric outlet obstruction with obvious gastric distention.Formal read notable for ventral abdominal hernia causing partial outlet obstruction of the proximal stomach.? Nodular infiltrate noted in the right upper lobe of the lung. Given the patient's past medical history and comorbidities, the family was notified of findings and states. (, ED provider Sarah Arce spoke with angela wong's POA,Brother as well as [id number] and both of them state that she would not want life-saving interventions and are understanding that without surgery patient will likely from Her current obstruction.? They are aware of this and understand. They do wish to continue with conservative measures, NG tube, antibiotics and fluids to see if patient has some improvement in symptoms. [facility] Disclaimer: The information contained in this section may have been updated after the patient was seen, as this information can be updated by other users. Medical History Anxiety Cardiac murmur Dyspnea Hypothyroid Irregular heart rhythm Mitral valve regurgitation Social History Smoking Status: Unknown if ever smoked alcohol intake: never substance use type: denies use current occupational status: other Travel in the last 8 weeks: None housing: house Other Medical History Have you received the Flu Vaccine for this season: No Have you received the Pneumonia Vaccine: No Review of Systems Review of Systems Review of systems:: unable to obtain Meds Home Medications and Allergies Home Medications ?Medication ?Instructions ?Recorded ?Confirmed ?Type acetaminophen 325 mg tablet 650 mg (2 x 325 mg) PO Q4HP PRN 06/07/22 08/03/22 Rx Fever Or Mild Pain #0 tabs levothyroxine 50 mcg tablet 50 mcg PO DAILY hypothyroidism 06/07/22 08/03/22 History New Prescriptions to Start Prescriptions: Allergies Allergy/AdvReac Type Severity Reaction Status Date / Time No Known Allergies Allergy Verified 08/03/22 14:07 Exam Data for Last 24 hours Vital signs and Labs for Last 24 Hours: Temp Pulse Resp BP Pulse Ox O2 Del Method 98.7 F 89 13 155/85 H 95 Room Air 08/06/24 03:21 08/06/24 06:00 08/06/24 06:00 08/06/24 06:00 08/06/24 06:00 08/06/24 06:00 Laboratory Results - last 24 hr 08/06/24 03:21: WBC 17.8 H, RBC 4.87, Hgb 13.1, Hct 40.8, MCV 83.8, MCH 26.9 L, MCHC 32.1, RDW 14.8, Plt Count 344, MPV 10.1, Neut % (Auto) 83.6 H, Lymph % (Auto) 10.9, [place] % (Auto) 4.7, Eos % (Auto) 0.1, Baso % (Auto) 0.2, Neut # (Auto) 14.9 H, Lymph # (Auto) 1.9, [place] # (Auto) 0.8, Eos # (Auto) 0.0, Baso # (Auto) 0.0, Total Counted 100, Neutrophils % (Manual) 90 H, Lymphocytes % (Manual) 10, Platelet Estimate Normal, RBC Morphology Normal, PT 10.8, INR 0.96, Sodium 141, Potassium 3.6, Chloride 97 L, Carbon Dioxide 37 H, Anion Gap 10.6, BUN 21 H, Creatinine 0.60, Estimated Creat Clear 52, Estimated GFR 95, Est GFR ( Amer) 115, Glucose 122 H, Lactate 1.6, Calcium 9.4, Total Bilirubin 0.4, AST 31, ALT 18, Alkaline Phosphatase 156 H, Troponin I < 0.01, Total Protein 8.1, Albumin 4.0, Globulin 4.1 H, Albumin/Globulin Ratio 1.0 L, Lipase 244, TSH 4.58, Free T4 1.39 08/06/24 05:26: Urine Color Yellow, Urine Appearance Clear, Urine pH 8.5, Ur Specific [place] 1.010, Urine Protein Trace, Urine Glucose (UA) Negative, Urine Ketones Negative, Urine Blood Trace-i, Urine Nitrate Negative, Urine Bilirubin Negative, Urine Urobilinogen 1.0, Ur Leukocyte Esterase Trace, Urine RBC 10-20, Urine WBC 3-5, Urine Bacteria 1+, Gastric Occult Blood Negative I & O for Last 24 hours: Intake & Output 08/03/24 08/04/24 08/05/24 08/06/24 23:59 23:59 23:59 23:59 Output Total 700 / 700 Balance -700 / -700 Weight 81.647 kg Constitutional Constitutional: no acute distress *Routine HEENT Exam Head: Present normocephalic Eye: Present EOMI and PERRL ENT: Present mucous membranes moist *Routine Neck Exam Neck: Present supple; Absent lymphadenopathy *Routine Respiratory Exam Respiratory: Present CTA bilaterally *Routine Cardiovascular Exam Cardiovascular: Present RRR *Routine Abdominal Exam Abdominal: Present soft and tenderness Comments: NG tube in place draining red/brown output *Routine Rectal Exam Rectal:: deferred *Routine Genitalia Exam Genitalia:: deferred *Routine Extremities Exam Extremities: Absent cyanosis, clubbing or edema *Routine Skin Exam Skin: Present warm; Absent rash *Routine Neurological Exam Neurological: Present alert and oriented X3 Assessment and Plan *Assessment and plan (1) Vomiting: Status: Acute Category: Medical Code(s): R11.10 - Vomiting, unspecified (2) Ventral hernia: Status: Acute Category: Medical Code(s): K43.9 - Ventral hernia without obstruction or gangrene (3) Partial gastric outlet obstruction: Status: Acute Category: Medical Code(s): K31.1 - Adult hypertrophic pyloric stenosis Plan #Vomiting #Ventral hernia #Partial gastric outlet obstruction CT imaging with partial gastric outlet obstruction with distended stomach. NG tube in place for decompression. Patient is DNR/DNI. POA, patient's brother and [id number] states that she would not want to undergo life-saving interventions or surgery. They understand that the significance of this bowel injury could mean her ultimate demise. They are understanding of this and wished for no surgical intervention. Continue with conservative management i.e. NG tube, fluids, n.p.o. and bowel rest. Leukocytosis noted with a white count of 17, likely reactive but will initiate Zosyn empirically
--- NOTE | 2024-08-06 06:37 | PC.NURSE ---
blood cultures drawn and sent to lab
[2024-08-06] MEDS: SODIUM CHLORIDE 0.9% 25ML BAG 25 ML IV (06:38)
[2024-08-06] MEDS: PIPERACILLIN/TAZO 4.5 GM in 0.9 % SODIUM CHLORIDE 100 ML IV (06:49)
--- NOTE | 2024-08-06 06:57 | PC.NURSE ---
Patient arrived to floor via stretcher from ED at 06:55.
[2024-08-06 07:35] LABS: Troponin I < 0.01 ng/ml (0.00-0.034)
--- NOTE | 2024-08-06 07:57 | SW/DCPLANNER ---
Addendum entered by Zulma Pacheco 08/07/24 15:51: The plan for this patient is to return to [place] today [facility] level of care w/ Hospice to evaluate at bedside tomorrow. I have updated Britney w/ E[facility] Baker w/ Hospice and patient's family regarding discharge today. Addendum entered by Zulma Pacheco 08/07/24 13:39: Per MD request patient information has been faxed to [facility]. Patient/family are interested in hernia surgery but would like to pursue Hospice services afterwards. I will follow up w/ Hospice once patient information is reviewed. Original Note: This patient currently resides at [facility] level of care. I will continue to follow up w/ Britney at [place] during patient's admission. Discharge date is unknown at this time.
[2024-08-06] MEDS: LACTATED RINGERS 1000ML 1,000 ML 75 ML IV (07:58)
--- NOTE | 2024-08-06 08:28 | P.CONPHA_ITS ---
Pharmacy Intervention Comments: VERIFIED MEDICATIONS WITH OUTPATIENT PHARMACY. CONFIRMED WITH [facility].
--- NOTE | 2024-08-06 08:28 | HMH.PHAINT1 ---
Pharmacy Intervention Comments: VERIFIED MEDICATIONS WITH OUTPATIENT PHARMACY. CONFIRMED WITH [facility].
--- NOTE | 2024-08-06 11:55 | PC.NURSE ---
MD notified about patient pulling out NG tube, will hold placing a new NG per MD.
[2024-08-06 12:11] LABS: HIV Combo NEGATIVE (Negative)
[2024-08-06 12:19] LABS: Hepatitis C Ab Qual. W/ RFX NEGATIVE (Negative)
[2024-08-06] MEDS: PIPERCILLIN/TAZO 3.375 GM in 0.9 % SODIUM CHLORIDE 50 ML IV ×2 (12:35→18:46)
--- NOTE | 2024-08-06 13:02 | EXP.GE.CONS ---
History of Present Illness *Admission Date: 08/06/24 *History of present illness: Mrs. Gonzalez is an 84-year-old female transferred from the longterm with vomiting and hernia. Given the patient's past medical history and comorbidities, the family was notified of findings and states.. She is coming from [facility]. She presented with nausea and vomiting x 4 and 1 to 2 hours. She had a ventral hernia known. CT scan in the ED showed a large ventral abdominal hernia with with at least partial obstruction of the proximal stomach. There is a markedly distended stomach and there was some question of gastric outlet obstruction. The patient is reporting no abdominal pain. There was some evidence of nonspecific esophagitis. The family was contacted and they had specifically requested no life-saving interventions and conservative measures only. This was from the power of compliance attorney (brother and [id number]). The patient is unable to give any history. [facility] Disclaimer: The information contained in this section may have been updated after the patient was seen, as this information can be updated by other users. Medical History Anxiety Cardiac murmur Dyspnea Hypothyroid Irregular heart rhythm Mitral valve regurgitation Social History Smoking Status: Unknown if ever smoked alcohol intake: never substance use type: denies use current occupational status: other Travel in the last 8 weeks: None housing: [facility] Home Medications and Allergies Home Medications ?Medication ?Instructions ?Recorded ?Confirmed ?Type acetaminophen 500 mg tablet 500 mg PO Q4HP PRN mild pain or 08/06/24 08/06/24 History fever calcium polycarbophil 625 mg 625 mg PO BID 08/06/24 08/06/24 History tablet (Fiber-Lax) dextromethorphan-guaifenesin 10 10 ml PO Q4H PRN Cough 08/06/24 08/06/24 History mg-100 mg/5 mL oral liquid lactulose 10 gram/15 mL oral 10 g PO DAILY PRN Constipation 08/06/24 08/06/24 History solution levothyroxine 75 mcg tablet 75 mcg PO DAILY 08/06/24 08/06/24 History memantine 10 mg tablet 10 mg PO BID 08/06/24 08/06/24 History miconazole nitrate 2 % topical 1 applic topical BID PRN Skin 08/06/24 08/06/24 History powder Irritation mirtazapine 7.5 mg tablet 7.5 mg PO HS 08/06/24 08/06/24 History ondansetron 4 mg disintegrating 4 mg PO Q6H PRN Nausea And Vomiting 08/06/24 08/06/24 History tablet pantoprazole 40 mg tablet,delayed 40 mg PO DAILY 08/06/24 08/06/24 History release New Prescriptions to Start Prescriptions: Allergies Allergy/AdvReac Type Severity Reaction Status Date / Time No Known Allergies Allergy Verified 08/03/22 14:07 Exam (Inpt) Vital signs and Labs for Last 24 Hours: Temp Pulse Resp BP Pulse Ox O2 Del Method 97.8 F 83 19 162/85 H 98 Room Air 08/06/24 08:00 08/06/24 08:00 08/06/24 08:00 08/06/24 08:00 08/06/24 08:00 08/06/24 11:00 Laboratory Results - last 24 hr 08/06/24 03:21: WBC 17.8 H, RBC 4.87, Hgb 13.1, Hct 40.8, MCV 83.8, MCH 26.9 L, MCHC 32.1, RDW 14.8, Plt Count 344, MPV 10.1, Neut % (Auto) 83.6 H, Lymph % (Auto) 10.9, [place] % (Auto) 4.7, Eos % (Auto) 0.1, Baso % (Auto) 0.2, Neut # (Auto) 14.9 H, Lymph # (Auto) 1.9, [place] # (Auto) 0.8, Eos # (Auto) 0.0, Baso # (Auto) 0.0, Total Counted 100, Neutrophils % (Manual) 90 H, Lymphocytes % (Manual) 10, Platelet Estimate Normal, RBC Morphology Normal, PT 10.8, INR 0.96, Sodium 141, Potassium 3.6, Chloride 97 L, Carbon Dioxide 37 H, Anion Gap 10.6, BUN 21 H, Creatinine 0.60, Estimated Creat Clear 52, Estimated GFR 95, Est GFR ( Amer) 115, Glucose 122 H, Lactate 1.6, Calcium 9.4, Total Bilirubin 0.4, AST 31, ALT 18, Alkaline Phosphatase 156 H, Troponin I < 0.01, Total Protein 8.1, Albumin 4.0, Globulin 4.1 H, Albumin/Globulin Ratio 1.0 L, Lipase 244, TSH 4.58, Free T4 1.39, HCV Ab SAMIA w/Rflx PCR Qn Negative, HIV Ag/Ab Combo Qual Negative 08/06/24 05:26: Urine Color Yellow, Urine Appearance Clear, Urine pH 8.5, Ur Specific Call 1.010, Urine Protein Trace, Urine Glucose (UA) Negative, Urine Ketones Negative, Urine Blood Trace-i, Urine Nitrate Negative, Urine Bilirubin Negative, Urine Urobilinogen 1.0, Ur Leukocyte Esterase Trace, Urine RBC 10-20, Urine WBC 3-5, Urine Bacteria 1+, Gastric Occult Blood Negative, SARS-CoV-2 (PCR) Not detected, Influenza A Untype (PCR) Not detected, Influenza Type B (PCR) Not detected 08/06/24 06:20: Troponin I < 0.01 I & O for Labs for Last 24 Hours: Intake & Output 08/03/24 08/04/24 08/05/24 08/06/24 23:59 23:59 23:59 23:59 Output Total 900 / 900 Balance -900 / -900 Weight 180 lb Constitutional: no acute distress and obtunded Comments:: Palpable but nonreducible ventral hernia with minimal tenderness Results Labs 08/06/24 03:21 08/06/24 03:21 Labs: Laboratory Results - last 24 hr 08/06/24 03:21: WBC 17.8 H, RBC 4.87, Hgb 13.1, Hct 40.8, MCV 83.8, MCH 26.9 L, MCHC 32.1, RDW 14.8, Plt Count 344, MPV 10.1, Neut % (Auto) 83.6 H, Lymph % (Auto) 10.9, [place] % (Auto) 4.7, Eos % (Auto) 0.1, Baso % (Auto) 0.2, Neut # (Auto) 14.9 H, Lymph # (Auto) 1.9, [place] # (Auto) 0.8, Eos # (Auto) 0.0, Baso # (Auto) 0.0, Total Counted 100, Neutrophils % (Manual) 90 H, Lymphocytes % (Manual) 10, Platelet Estimate Normal, RBC Morphology Normal, PT 10.8, INR 0.96, Sodium 141, Potassium 3.6, Chloride 97 L, Carbon Dioxide 37 H, Anion Gap 10.6, BUN 21 H, Creatinine 0.60, Estimated Creat Clear 52, Estimated GFR 95, Est GFR ( Amer) 115, Glucose 122 H, Lactate 1.6, Calcium 9.4, Total Bilirubin 0.4, AST 31, ALT 18, Alkaline Phosphatase 156 H, Troponin I < 0.01, Total Protein 8.1, Albumin 4.0, Globulin 4.1 H, Albumin/Globulin Ratio 1.0 L, Lipase 244, TSH 4.58, Free T4 1.39, HCV Ab SAMIA w/Rflx PCR Qn Negative, HIV Ag/Ab Combo Qual Negative 08/06/24 05:26: Urine Color Yellow, Urine Appearance Clear, Urine pH 8.5, Ur Specific Call 1.010, Urine Protein Trace, Urine Glucose (UA) Negative, Urine Ketones Negative, Urine Blood Trace-i, Urine Nitrate Negative, Urine Bilirubin Negative, Urine Urobilinogen 1.0, Ur Leukocyte Esterase Trace, Urine RBC 10-20, Urine WBC 3-5, Urine Bacteria 1+, Gastric Occult Blood Negative, SARS-CoV-2 (PCR) Not detected, Influenza A Untype (PCR) Not detected, Influenza Type B (PCR) Not detected 08/06/24 06:20: Troponin I < 0.01 Assessment and Plan *Assessment and plan (1) Incarcerated ventral hernia: Status: Acute Category: Medical Code(s): K43.6 - Other and unspecified ventral hernia with obstruction, without gangrene (2) Partial gastric outlet obstruction: Status: Acute Category: Medical Code(s): K31.1 - Adult hypertrophic pyloric stenosis (3) Vomiting: Status: Acute Category: Medical Code(s): R11.10 - Vomiting, unspecified Plan 1. Abdominal wall/ventral hernia with incarcerated stomach with at least partial gastric outlet obstruction with markedly distended stomach on CAT scan. The patient is fairly clinically asymptomatic but presented with vomiting. I did try to reduce this manually but did not have any luck with that. My greatest concern is that she may have progression towards strangulation. Even more so, if there is at least partial outlet obstruction, she will continue do poorly with oral intake. Perhaps a fluoroscopic study may help (i.e. upper GI series with water-soluble contrast (low osmolar nonionic)) and providing some solution as well as determining the degree of obstruction. I would still recommend surgical consultation. I do realize that the family is opposed to aggressive measures.
[2024-08-06] MEDS: METOCLOPRAMIDE HCL 10MG/2ML VIAL 10 MG IVP ×2 (14:57→20:27)
--- NOTE | 2024-08-06 18:08 | EXP.EVENT.NO ---
#Incarcerated ventral hernia with gastric obstruction ? Extensively discussed case with patient's brother, Chloe Lara, and his . They are very much interested in hospice care for patient, however they acknowledge without surgical fixation of incarcerated hernia/bowel it would leave to patient's demise in days to week. At this time, they want palliative surgical fixation of obstruction so patient can be transition to hospice care thereafter and tolerate oral feeds. ? Extensively also discussed case with Dr. Samayoa who will await preoperative cardiac assessment and speak to anesthesiology regarding case. If both those are cleared, general surgery plans for intervention tomorrow morning. ? Cardiology consulted for preoperative operative cardiac assessment. ECHO ordered. ? N.p.o. at midnight. ? Of note, patient is adamantly refusing NG tube placement. Will hold off for now unless she becomes symptomatic, in which case we can administer light anxiety lytic and place NG tube.
--- NOTE | 2024-08-06 18:22 | PC.NURSE ---
attempted to replace NG tube. patient refused multiple times, explained to patient the need for the NG tube, patient still refused. notified MD.
[2024-08-07] VITALS: BP 108/70; PULSE 72; RESP 18; TEMP 36.8; O2SAT 96
[2024-08-07] MEDS: LACTATED RINGERS 1000ML 1,000 ML 75 ML IV (00:05)
[2024-08-07] MEDS: PIPERCILLIN/TAZO 3.375 GM in 0.9 % SODIUM CHLORIDE 50 ML IV ×3 (00:05→15:10)
--- NOTE | 2024-08-07 03:50 | PC.NURSE ---
Pt responds to name but is oriented only X 1. Most of her speech is jumbled and difficult to understand. Pt is incont of bowel and has khalil which is patent to BSD. Pt denied having pain and did now show any signs of pain or discomfort this shift. She has slept most of the shift and has appeared comfortable. BS sluggish all 4 quads, no BM this shift. She has been afebrile and other VS WNL for pt
[2024-08-07 04:00] VITALS: BP 118/54; PULSE 89; RESP 16; TEMP 36.7; O2SAT 94; BMI 24.0
[2024-08-07] MEDS: METOCLOPRAMIDE HCL 10MG/2ML VIAL 10 MG IVP ×2 (04:23→15:09)
--- NOTE | 2024-08-07 07:02 | P.CONS_ITS ---
History of Present Illness *Admission Date: 08/06/24 *Reason for visit:: Incarcerated ventral hernia *History of present illness: This is an 84-year-old female seen in consultation from the primary service for evaluation regarding incarcerated ventral hernia. Please see HPI forwarded from admission H&P below. She presented with nausea/vomiting and increasing abdominal pain. Radiographic evidence of ventral hernia with partial gastric incarceration noted. Forwarded from admission H&P: Mrs. Gonzalez is an 84-year-old female transferred from the halfway with vomiting and hernia. Given the patient's past medical history and comorbidities, the family was notified of findings and states.. She is coming from [facility]. She presented with nausea and vomiting x 4 and 1 to 2 hours. She had a ventral hernia known. CT scan in the ED showed a large ventral abdominal hernia with with at least partial obstruction of the proximal stomach. There is a markedly distended stomach and there was some question of gastric outlet obstruction. The patient is reporting no abdominal pain. There was some evidence of nonspecific esophagitis. The family was contacted and they had specifically requested no life-saving interventions and conservative measures only. This was from the power of workers compensation defense attorney (brother and [id number]). The patient is unable to give any history. [facility] Disclaimer: The information contained in this section may have been updated after the patient was seen, as this information can be updated by other users. Medical History Anxiety Cardiac murmur Dyspnea Hypothyroid Irregular heart rhythm Mitral valve regurgitation Social History Smoking Status: Unknown if ever smoked alcohol intake: never substance use type: denies use current occupational status: other Travel in the last 8 weeks: None housing: house Meds Home Medications and Allergies Home Medications ?Medication ?Instructions ?Recorded ?Confirmed ?Type acetaminophen 500 mg tablet 500 mg PO Q4HP PRN mild pain or 08/06/24 08/06/24 History fever calcium polycarbophil 625 mg 625 mg PO BID 08/06/24 08/06/24 History tablet (Fiber-Lax) dextromethorphan-guaifenesin 10 10 ml PO Q4H PRN Cough 08/06/24 08/06/24 History mg-100 mg/5 mL oral liquid lactulose 10 gram/15 mL oral 10 g PO DAILY PRN Constipation 08/06/24 08/06/24 History solution levothyroxine 75 mcg tablet 75 mcg PO DAILY 08/06/24 08/06/24 History memantine 10 mg tablet 10 mg PO BID 08/06/24 08/06/24 History miconazole nitrate 2 % topical 1 applic topical BID PRN Skin 08/06/24 08/06/24 History powder Irritation mirtazapine 7.5 mg tablet 7.5 mg PO HS 08/06/24 08/06/24 History ondansetron 4 mg disintegrating 4 mg PO Q6H PRN Nausea And Vomiting 08/06/24 08/06/24 History tablet pantoprazole 40 mg tablet,delayed 40 mg PO DAILY 08/06/24 08/06/24 History release New Prescriptions to Start Prescriptions: Allergies Allergy/AdvReac Type Severity Reaction Status Date / Time No Known Allergies Allergy Verified 08/03/22 14:07 Exam (Inpt) Vital signs and Labs for Last 24 Hours: Temp Pulse Resp BP Pulse Ox O2 Del Method 98.1 F 89 16 118/54 L 94 L Room Air 08/07/24 04:00 08/07/24 04:00 08/07/24 04:00 08/07/24 04:00 08/07/24 04:00 08/07/24 06:43 Laboratory Results - last 24 hr 08/06/24 03:21: HCV Ab SAMIA w/Rflx PCR Qn Negative, HIV Ag/Ab Combo Qual Negative 08/06/24 05:26: SARS-CoV-2 (PCR) Not detected, Influenza A Untype (PCR) Not detected, Influenza Type B (PCR) Not detected 08/06/24 06:20: Troponin I < 0.01 I & O for Labs for Last 24 Hours: Intake & Output 08/04/24 08/05/24 08/06/24 08/07/24 11:59 11:59 11:59 11:59 Intake Total 475 / 475 Output Total 900 / 900 300 / 300 Balance -900 / -900 175 / 175 Weight 180 lb 144 lb Constitutional: chronically ill appearing Respiratory: Absent respiratory distress Cardiac: Absent Tachycardia GI: Present tenderness Comments:: Firm mass and supraumbilical region consistent with incarcerated hernia Results Labs 08/06/24 03:21 08/06/24 03:21 Labs: Laboratory Results - last 24 hr 08/06/24 03:21: HCV Ab SAMIA w/Rflx PCR Qn Negative, HIV Ag/Ab Combo Qual Negative 08/06/24 05:26: SARS-CoV-2 (PCR) Not detected, Influenza A Untype (PCR) Not detected, Influenza Type B (PCR) Not detected 08/06/24 06:20: Troponin I < 0.01 Assessment and Plan *Assessment and plan (1) Incarcerated ventral hernia: Status: Acute Category: Medical Code(s): K43.6 - Other and unspecified ventral hernia with obstruction, without gangrene Plan: Please see primary care provider notes regarding patient's comorbid medical conditions and overall plan. Pending cardiology clearance the tentative plan is for operative repair prior to patient's hospice placement.
[2024-08-07 07:11] LABS: Basophils # 0.1 K/mm3 (0-0.2); Basophils % 0.9 % (0.1-2.0); Eosinophils # 0.1 K/mm3 (0.0-0.4); Eosinophils % 2.5 % (0.1-12.0); Hematocrit 31.5 % (37.0-47.0); Hemoglobin 9.9 g/dL (12.2-16.2); Lymphocytes # 1.9 K/mm3 (0.7-4.5); Lymphocytes % 33.3 % (10-50); Mean Corpuscular HGB Conc 31.4 g/dL (31.8-35.4); Mean Corpuscular Volume 86.1 fl (81-99); Mean Platelet Volume 10.4 fl (7.4-10.4); Monocytes # 0.8 K/mm3 (0.1-1.0); Monocytes % 13.5 % (1.7-9.3); Neutrophils # 2.8 K/mm3 (1.8-7.8); Neutrophils % 49.6 % (37.0-80.0); Platelet Count 241 K/mm3 (142-424); Red Blood Count 3.66 M/mm3 (4.20-5.40); Red Cell Distribution Width 15.2 % (11.5-17.5); White Blood Count 5.6 K/mm3 (4.8-10.8)
[2024-08-07 07:23] LABS: Anion Gap 5.7 mEq/L (5-15); Blood Urea Nitrogen 19 mg/dl (7-17); Calcium 8.1 mg/dl (8.4-10.2); Carbon Dioxide 32 mmol/L (22.0-30.0); Chloride 107 mmol/L (98-107); Creatinine Clearance Estimated 42 mL/min (50-200); Estimated Glomerular Filt Rate 68 ml/min (>60); GFR (African American) 82 ML/MIN (>60); Glucose 80 mg/dl (74-100); Sodium 142 mmol/L (136-145)
[2024-08-07 08:00] VITALS: BP 118/62; PULSE 66; RESP 18; TEMP 36.6; O2SAT 96
[2024-08-07 08:06] LABS: Potassium 2.7 mmoL/L (3.5-5.1)
--- NOTE | 2024-08-07 08:12 | PC.NURSE ---
notified MD of critical potassium of 2.7, new orders received.
[2024-08-07 08:20] LABS: Alanine Aminotransferase 11 U/L (12-78); Albumin Level 2.6 g/dl (3.5-5.0); Alkaline Phosphatase 99 U/L (38-126); Aspartate Amino Transferase 22 U/L (14-36); Bilirubin,Direct 0.1 mg/dl (0.0-0.4); Bilirubin,Indirect 0.3 mg/dL (0.0-0.9); Bilirubin,Total 0.4 mg/dl (0.2-1.3); Bilirubin,Unconjugated 0.3 mg/dL (0.0-1.1); Magnesium 1.8 mg/dl (1.6-2.3); Total Protein,Serum 5.2 g/dl (6.3-8.2)
[2024-08-07] MEDS: KCl 10mEq/100ml 100 ML 100 MEQ IV ×6 (10:18→19:35)
[2024-08-07 11:32] VITALS: BP 127/65; PULSE 72; RESP 20; O2SAT 96
[2024-08-07 13:29] LABS: Chloride 107 mmol/L (98-107); Sodium 138 mmol/L (136-145)
[2024-08-07 13:30] LABS: Potassium 3.7 mmoL/L (3.5-5.1)
[2024-08-07 13:33] LABS: Anion Gap 4.7 mEq/L (5-15); Blood Urea Nitrogen 19 mg/dl (7-17); Carbon Dioxide 30 mmol/L (22.0-30.0); Creatinine Clearance Estimated 42 mL/min (50-200); Estimated Glomerular Filt Rate 79 ml/min (>60); GFR (African American) 96 ML/MIN (>60); Glucose 80 mg/dl (74-100)
--- NOTE | 2024-08-07 13:33 | EXP.EVENT.NO ---
Discussed case with cardiology and they stated she is is an average preoperative risk and can proceed with surgery from a cardiac standpoint.
--- NOTE | 2024-08-07 13:45 | P.PNANES_ITS ---
[facility] Disclaimer: The information contained in this section may have been updated after the patient was seen, as this information can be updated by other users. Medical History Anxiety Cardiac murmur Dyspnea Hypothyroid Irregular heart rhythm Mitral valve regurgitation Social History Smoking Status: Unknown if ever smoked alcohol intake: never substance use type: denies use current occupational status: other Travel in the last 8 weeks: None housing: house [facility] Anesthesia Checklist Patient Identification Patient Identification: Arm Band and Family Structural Data Admitted From: Inpatient Planned Operative Procedure/s: Open Ventral Hernia Repair Consent for Planned Operative Procedure(s) Verified: Yes Verified Documents: Surgical Consent, History and Physical and Cardiac Clearance NPO Status Verified Time NPO: 00:00 Additional verifications Anesthesia Reactions: No Airway Assessment Mallampati Score:: Class II C-Spine Mobility Assessed: Yes TMJ Mobility Assessed: Yes Neurological Assessment Level of Consciousness: Awake and Inappropriate Anesthesia Plan Anesthesia Risk discussed: Yes Anesthesia Plan: Verified (with family) ASA Class: IV Anesthesia Type: General Preoperative Comments Pre-Operative Comments: Had detailed conversation with patient's family.
--- NOTE | 2024-08-07 13:53 | PC.NURSE ---
Pt left floor for procedure.
--- NOTE | 2024-08-07 14:09 | EXP.CARD.PN ---
Subjective Subjective Date: 08/07/24 Time: 08:00 Principal diagnosis: vomiting Interval history: Hospitalist Note: This is an 84-year-old female with a past medical history of hypothyroidism, aphasia, hypertension who presents from her nursing facility for episodes of vomiting.? Facility was concerned about the patient's history of umbilical hernia and noticed that she had been vomiting for approximately 2 hours.? They sent her to the emergency department for further evaluation.? The patient does admit to some mild abdominal discomfort but cannot provide any further details due to baseline mental status.?Deny headache, fever, chest pain.? Denies any fever that she is aware of.? Denies any diarrhea or difficulty with urination.Emergency department workup notable for leukocytosis with a white count of 17, normal lactic acid.? All other laboratory evaluations are mostly unremarkable.? CT imaging obtained and concerns for gastric outlet obstruction with obvious gastric distention.Formal read notable for ventral abdominal hernia causing partial outlet obstruction of the proximal stomach.? Nodular infiltrate noted in the right upper lobe of the lung.Given the patient's past medical history and comorbidities, the family was notified of findings and states. (, ED provider Sarah Arce spoke with patient's POA,Brother as well as [id number] and both of them state that she would not want life-saving interventions and are understanding that without surgery patient will likely from Her current obstruction.? They are aware of this and understand. They do wish to continue with conservative measures, NG tube, antibiotics and fluids to see if patient has some improvement in symptoms. Cards note: This is a 84-year-old white female with past medical history of hypothyroidism, aphasia and hypertension who presented from halfway with complaints of vomiting. Patient was found to have a partial gastric outlet obstruction and is pending surgical repair. Cardiology was asked to evaluate for risk assessment to proceed with surgery. Serial troponins remain negative. Echo shows normal LV systolic function with moderate RV dilation and normal RV function. Mild biatrial dilation, moderate TR mild AI and MR with trivial anterior pericardial effusion present. EKG shows normal sinus rhythm at a rate of 75 without acute ischemic changes noted. Exam Data for Last 24 hours Vital signs and Labs for Last 24 Hours: Temp Pulse Resp BP Pulse Ox O2 Del Method 98 F 72 20 127/65 96 Room Air 08/07/24 08:00 08/07/24 11:32 08/07/24 11:32 08/07/24 11:32 08/07/24 11:32 08/07/24 13:00 Laboratory Results - last 24 hr 08/07/24 06:25: WBC 5.6 D, RBC 3.66 L, Hgb 9.9 L, Hct 31.5 L, MCV 86.1, MCH 27.0, MCHC 31.4 L, RDW 15.2, Plt Count 241 D, MPV 10.4, Neut % (Auto) 49.6, Lymph % (Auto) 33.3, [place] % (Auto) 13.5 H, Eos % (Auto) 2.5, Baso % (Auto) 0.9, Neut # (Auto) 2.8, Lymph # (Auto) 1.9, [place] # (Auto) 0.8, Eos # (Auto) 0.1, Baso # (Auto) 0.1, Sodium 142, Potassium 2.7 L* D, Chloride 107, Carbon Dioxide 32 H, Anion Gap 5.7, BUN 19 H, Creatinine 0.80 D, Estimated Creat Clear 42, Estimated GFR 68, Est GFR ( Amer) 82 D, Glucose 80, Calcium 8.1 L, Magnesium 1.8, Total Bilirubin 0.4, Direct Bilirubin 0.1, Conjugated Bilirubin 0.0, Indirect Bilirubin 0.3, Unconjugated Bilirubin 0.3, AST 22 D, ALT 11 L D, Alkaline Phosphatase 99, Total Protein 5.2 L D, Albumin 2.6 L D 08/07/24 13:16: Sodium 138, Potassium 3.7 D, Chloride 107, Carbon Dioxide 30, Anion Gap 4.7 L, BUN 19 H, Creatinine 0.70, Estimated Creat Clear 42, Estimated GFR 79, Est GFR ( Amer) 96, Glucose 80, Calcium 8.0 L I & O for Last 24 hours: Intake & Output 08/04/24 08/05/24 08/06/24 08/07/24 23:59 23:59 23:59 23:59 Intake Total 50 / 475 425 / 425 Output Total 1100 / 1100 100 / 100 Balance -1050 / -625 325 / 325 Weight 180 lb 144 lb Microbiology Reports for the Last 24 Hours: Microbiology 08/06/24 06:35 Blood Blood Culture - Preliminary NO GROWTH AFTER 24 HOURS 01/15/25 06:35 Blood Blood Culture - Preliminary NO GROWTH AFTER 24 HOURS *Routine Cardiovascular Exam Cardiovascular: Present RRR, Normal S1 and Normal S2 Progress Note: A&P Assessment and plan (1) Incarcerated ventral hernia: Status: Acute Assessment and Plan Assessment and Plan for All Diagnoses:: Vomiting Partial gastric obstruction Surgical risk assessment Echo: Normal LV systolic function. Moderate RV dilation with normal RV function. Mild biatrial dilation. Moderate TR, mild AI, mild MR. Trivial anterior pericardial effusion without indication of tamponade. EKG negative for acute ischemic changes Trops negative The patient is considered at ___moderate operative risk, this risk is non-modifiable at this time and is unlikely to be further mitigated by additional pre-operative cardiac work-up. Accordingly, and if deemed surgically feasible, the patient may undergo surgery without additional cardiac testing.? Post-operative, routine care is recommended.
--- NOTE | 2024-08-07 15:06 | EXP.EVENT.NO ---
The patient and the patient's family now wish to avoid surgery.
--- NOTE | 2024-08-07 15:19 | PC.NURSE ---
patient is alert to self and remains on room air. patient refused echo this AM. MD notified. patient agreed to echo later in shift. patient was scheduled to have a hernia repair today, she refused multiple times, MD aware. she is currently lying in bed, khalil cath in place. bed alarm on. no further requests at this time.
[2024-08-07 16:00] VITALS: BP 135/66; PULSE 76; RESP 18; TEMP 36.6; O2SAT 96
--- NOTE | 2024-08-07 16:12 | EXP.DC.SUM ---
General Admission date:: 08/06/24 HPI HPI HPI: This is an 84-year-old female seen in consultation from the primary service for evaluation regarding incarcerated ventral hernia. Please see HPI forwarded from admission H&P below. She presented with nausea/vomiting and increasing abdominal pain. Radiographic evidence of ventral hernia with partial gastric incarceration noted. Forwarded from admission H&P: Mrs. Gonzalez is an 84-year-old female transferred from the intermediate with vomiting and hernia. Given the patient's past medical history and comorbidities, the family was notified of findings and states.. She is coming from [facility]. She presented with nausea and vomiting x 4 and 1 to 2 hours. She had a ventral hernia known. CT scan in the ED showed a large ventral abdominal hernia with with at least partial obstruction of the proximal stomach. There is a markedly distended stomach and there was some question of gastric outlet obstruction. The patient is reporting no abdominal pain. There was some evidence of nonspecific esophagitis. The family was contacted and they had specifically requested no life-saving interventions and conservative measures only. This was from the power of tax attorney (brother and [id number]). The patient is unable to give any history. Hospital Course Hospital Course Hospital Course: Alice Gonzalez is an 84-year-old female who was admitted for incarcerated ventral hernia. #Incarcerated ventral hernia #Gastric outlet syndrome #Hospice care ? CT imaging with partial gastric outlet obstruction with distended stomach. NG tube initially placed, however patient removed it and refused replacing it. ? Extensively discussed case with patient's brother, Chloe Lara, and his . They are very much interested in hospice care for patient, however they acknowledge without surgical fixation of incarcerated hernia/bowel it would leave to patient's demise in days to week if she is not able to tolerate p.o. intake. They decided for palliative surgical fixation of obstruction so patient can be transition to hospice care thereafter and tolerate oral feeds. ? However, patient had waxing and waning mentation during hospitalization. She was taken down to the OR for surgery after consent was obtained from next of kin, her brother. In the OR, patient vehemently refused surgery. Family was contacted, and decided to abort route of surgical fixation of ventral hernia and transition to hospice care. ? [facility] to hospice care. Patient can be slowly advanced in diet. #Hypothyroidism ? Resume home levothyroxine. #GERD ? Resume home PPI #Dementia ? Resume home memantine, mirtazapine. Exam Data for Last 24 hours Vital signs and Labs for Last 24 Hours: Temp Pulse Resp BP Pulse Ox O2 Del Method 97.9 F 76 18 135/66 96 Room Air 08/07/24 16:00 08/07/24 16:00 08/07/24 16:00 08/07/24 16:00 08/07/24 16:00 08/07/24 16:00 Laboratory Results - last 24 hr 08/07/24 06:25: WBC 5.6 D, RBC 3.66 L, Hgb 9.9 L, Hct 31.5 L, MCV 86.1, MCH 27.0, MCHC 31.4 L, RDW 15.2, Plt Count 241 D, MPV 10.4, Neut % (Auto) 49.6, Lymph % (Auto) 33.3, [place] % (Auto) 13.5 H, Eos % (Auto) 2.5, Baso % (Auto) 0.9, Neut # (Auto) 2.8, Lymph # (Auto) 1.9, [place]ult[place] # (Auto) 0.8, Eos # (Auto) 0.1, Baso # (Auto) 0.1, Sodium 142, Potassium 2.7 L* D, Chloride 107, Carbon Dioxide 32 H, Anion Gap 5.7, BUN 19 H, Creatinine 0.80 D, Estimated Creat Clear 42, Estimated GFR 68, Est GFR ( Amer) 82 D, Glucose 80, Calcium 8.1 L, Magnesium 1.8, Total Bilirubin 0.4, Direct Bilirubin 0.1, Conjugated Bilirubin 0.0, Indirect Bilirubin 0.3, Unconjugated Bilirubin 0.3, AST 22 D, ALT 11 L D, Alkaline Phosphatase 99, Total Protein 5.2 L D, Albumin 2.6 L D 08/07/24 13:16: Sodium 138, Potassium 3.7 D, Chloride 107, Carbon Dioxide 30, Anion Gap 4.7 L, BUN 19 H, Creatinine 0.70, Estimated Creat Clear 42, Estimated GFR 79, Est GFR ( Amer) 96, Glucose 80, Calcium 8.0 L I & O for Last 24 hours: Intake & Output 08/04/24 08/05/24 08/06/24 08/07/24 23:59 23:59 23:59 23:59 Intake Total 50 / 475 425 / 425 Output Total 1100 / 1100 100 / 100 Balance -1050 / -625 325 / 325 Weight 81.647 kg 65.317 kg Microbiology Reports for the Last 24 Hours: Microbiology 08/06/24 06:35 Blood Blood Culture - Preliminary NO GROWTH AFTER 24 HOURS 08/06/24 06:35 Blood Blood Culture - Preliminary NO GROWTH AFTER 24 HOURS Constitutional Constitutional: no acute distress *Routine HEENT Exam Head: Present normocephalic Eye: Present EOMI and PERRL ENT: Present mucous membranes moist *Routine Neck Exam Neck: Present supple; Absent lymphadenopathy *Routine Respiratory Exam Respiratory: Present CTA bilaterally *Routine Cardiovascular Exam Cardiovascular: Present RRR *Routine Abdominal Exam Abdominal: Present soft and normoactive bowel sounds; Absent tenderness Comments: Distended abdomen. *Routine Extremities Exam Extremities: Absent cyanosis, clubbing or edema *Routine Skin Exam Skin: Present warm; Absent rash *Routine Neurological Exam Neurological: Present alert Comments: Alert and somewhat oriented at times, but waxing and waning in confusion. Results Data Completed and Pending Labs on day of discharge: Labs from last 24 hours 08/07/24 08/07/24 13:16 06:25 WBC 5.6 D RBC 3.66 L Hgb 9.9 L Hct 31.5 L MCV 86.1 MCH 27.0 MCHC 31.4 L RDW 15.2 Plt Count 241 D MPV 10.4 Neut % (Auto) 49.6 Lymph % (Auto) 33.3 Fult[place] % (Auto) 13.5 H Eos % (Auto) 2.5 Baso % (Auto) 0.9 Neut # (Auto) 2.8 Lymph # (Auto) 1.9 [place]ult[place] # (Auto) 0.8 Eos # (Auto) 0.1 Baso # (Auto) 0.1 Sodium 138 142 Potassium 3.7 D 2.7 L* D Chloride 107 107 Carbon Dioxide 30 32 H Anion Gap 4.7 L 5.7 BUN 19 H 19 H Creatinine 0.70 0.80 D Estimated Creat Clear 42 42 Estimated GFR 79 68 Est GFR ( Amer) 96 82 D Glucose 80 80 Calcium 8.0 L 8.1 L Magnesium 1.8 Total Bilirubin 0.4 Direct Bilirubin 0.1 Conjugated Bilirubin 0.0 Indirect Bilirubin 0.3 Unconjugated Bilirubin 0.3 AST 22 D ALT 11 L D Alkaline Phosphatase 99 Total Protein 5.2 L D Albumin 2.6 L D Preliminary micro results at discharge 08/06/24 06:35 Blood Culture - Preliminary Blood NO GROWTH AFTER 24 HOURS 08/06/24 06:35 Blood Culture - Preliminary Blood NO GROWTH AFTER 24 HOURS DS: Diagnosis Discharge Diagnosis (1) Incarcerated ventral hernia: Status: Acute Code(s): K43.6 - Other and unspecified ventral hernia with obstruction, without gangrene Meds Home Medications and Allergies Home Medications ?Medication ?Instructions ?Recorded ?Confirmed ?Type acetaminophen 500 mg tablet 500 mg PO Q4HP PRN mild pain or 08/06/24 08/06/24 History fever calcium polycarbophil 625 mg 625 mg PO BID 08/06/24 08/06/24 History tablet (Fiber-Lax) dextromethorphan-guaifenesin 10 10 ml PO Q4H PRN Cough 08/06/24 08/06/24 History mg-100 mg/5 mL oral liquid lactulose 10 gram/15 mL oral 10 g PO DAILY PRN Constipation 08/06/24 08/06/24 History solution levothyroxine 75 mcg tablet 75 mcg PO DAILY 08/06/24 08/06/24 History memantine 10 mg tablet 10 mg PO BID 08/06/24 08/06/24 History miconazole nitrate 2 % topical 1 applic topical BID PRN Skin 08/06/24 08/06/24 History powder Irritation mirtazapine 7.5 mg tablet 7.5 mg PO HS 08/06/24 08/06/24 History ondansetron 4 mg disintegrating 4 mg PO Q6H PRN Nausea And Vomiting 08/06/24 08/06/24 History tablet pantoprazole 40 mg tablet,delayed 40 mg PO DAILY 08/06/24 08/06/24 History release New Prescriptions to Start Prescriptions: Allergies Allergy/AdvReac Type Severity Reaction Status Date / Time No Known Allergies Allergy Verified 08/03/22 14:07 Discharge Plan Disposition Patient Disposition: [facility] Condition: Fair Discharge Order Discharge Orders: Discharge Order (Routine); Ordered 08/07/24 Ordered By: Andre Lomax Follow up Plan Prescriptions/Medication Reconciliation: Continued levothyroxine 75 mcg tablet 75 mcg PO DAILY pantoprazole 40 mg tablet,delayed release (DR/EC) 40 mg PO DAILY calcium polycarbophil [Fiber-Lax] 625 mg tablet 625 mg PO BID memantine 10 mg tablet 10 mg PO BID mirtazapine 7.5 mg tablet 7.5 mg PO HS dextromethorphan-guaifenesin 10-100 mg/5 mL Liquid 10 ml PO Q4H PRN (Reason: Cough) miconazole nitrate 2 % Powder 1 applic TOPICAL BID PRN (Reason: Skin Irritation) ondansetron 4 mg Tablet,Disintegrating 4 mg PO Q6H PRN (Reason: Nausea And Vomiting) lactulose 10 gram/15 mL Solution 10 g PO DAILY PRN (Reason: Constipation) acetaminophen 500 mg Tablet 500 mg PO Q4HP PRN (Reason: mild pain or fever) Problem Reconciliation Problems Reviewed?: Yes Patient Discharge Instructions Patient Instructions: DI for Vomiting -- Adult, DI for Gastric Outlet Obstruction, Catheter-Associated Urinary Tract Infection Print Language: Greenlandic Providers Primary Care Provider: Provider,Referral Admit Provider: Allan Pereyra Attending Provider: Allan Pereyra
--- NOTE | 2024-08-07 18:25 | CA_ITS ---
APPROVED REPORT EXAM: Comprehensive 2D, Doppler, and color-flow Echocardiogram Head Of Physics: Mara Morgan RT(R) Ht: 5 ft 5 in Wt: 180lbs BSA: 1.89 BP: 155/85 mmHg Indications: pre-op partial bowel obstruction 2D Dimensions LA Volume 30.30 mL LA Volume Index 16.523909 mL/m2 (M/F) 16-34 M-Mode Dimensions RVDd 2.46 cm (0.9-2.6) LA Diam 3.33 cm (1.9-4.0) LVDd 3.43 cm (3.5-5.7) LVDs 1.93 cm (3.5-5.7) IVSd 1.50 cm (0.6-1.1) PWd 1.00 cm (0.6-1.1) EF (Teich) 76.10% FS 43.70% EDV (Teich) 48.50 mL TAPSE 2.51 (<1.7) ESV (Teich) 11.60 mL LV Diastology E Decel Time 153 (160-240 msec) E/A Ratio 1.07 MED A' 9.90 cm/s LAT A' 8.80 cm/s Aortic Valve AI PHT 663.00 ms AO Peak GR. 4.90 mmHg Mitral Valve MV A Velocity 58.0 (40-130 cm/s) E/A Ratio 1.07 Pulmonary Valve PV Peak Velocity 117.0 (50-150 cm/s) Tricuspid Valve TR P. Velocity 275.00 cm/s RAP Estimate 10.00 mmHg RVSP 40.30 mmHg Left Ventricle The left ventricle is normal size. The left ventricular systolic function is normal. The left ventricular ejection fraction is within the normal range. There is increased LV wall thickness. There is normal LV segmental wall motion. The left ventricular diastolic function is normal. LVEF is 55-60%. Right Ventricle Right ventricle is moderately dilated. The right ventricular systolic function is normal. Atria Left atrium is mildly dilated. Right atrium is mildly dilated. There is no Doppler evidence of interatrial shunt. Aortic Valve The aortic valve is mildly thickened. There is no aortic valvular stenosis. Mild aortic regurgitation. Mitral Valve The mitral valve is mildly thickened. No evidence of mitral valve stenosis. Mild mitral regurgitation. Tricuspid Valve Tricuspid valve is grossly normal in structure and function. Moderate tricuspid regurgitation. RVSP is 30-35 mmHg. Trace pulmonic regurgitation. Pulmonic Valve The pulmonary valve is normal in structure. Trace pulmonic regurgitation. Great Vessels The aortic root is normal in size. The ascending aorta is not well-visualized. IVC is normal in size and collapses >50% with inspiration. Pericardium Trivial, anterior pericardial effusion is present. No echo indications of tamponade. Other Information Study Quality: Fair Conclusion Normal LV systolic function. Moderate RV dilation with normal RV function. Mild biatrial dilation. Moderate TR. Mild AI, mild MR. Trivial, anterior pericardial effusion is present. No echo indications of tamponade. Electronically signed by : Kiera Llanes MD 08/07/2024 13:42:07
== END 2024-08-07 21:31 | DRG 394 ==
LOC: ER 04:12 → 2ND 06:24
PROVIDERS: Nurse Anesthetist, Certified Registered; Nurse Practitioner Acute Care; Student in an Organized Health Care Education/Training Program; Admitting Provider Internal Medicine Adolescent Medicine; Emergency Provider Emergency Medicine; Visit Provider Internal Medicine Adolescent Medicine
DX: K45.0 Other specified abdominal hernia with obstruction, without gangrene (principal); K31.1 Adult hypertrophic pyloric stenosis; R47.01 Aphasia; R11.15 Cyclical vomiting syndrome unrelated to migraine; E03.9 Hypothyroidism, unspecified; I10 Essential (primary) hypertension; R79.89 Other specified abnormal findings of blood chemistry; K21.9 Gastro-esophageal reflux disease without esophagitis; F03.90 Unspecified dementia, unspecified severity, without behavioral disturbance, psychotic disturbance, mood disturbance, and anxiety; Z79.899 Other long term (current) drug therapy
CPT/HCPCS: 51702; 71045; 74018; 74177; 80048; 80053; 80076; 81001; 82272; 83605; 83690; 83735; 84439; 84443; 84484; 85007; 85025; 85610; 86803; 87040; 87389; 87636; 93005; 93306; 99285; G0328; J2405; J2543; J2550; J2765; J3480; J7120; Q9967